=== PATIENT | male | born 1955 | race Two or more races ===

== ENCOUNTER 2020-11-01 12:24 | Outpatient (REF) | payer MEDICARE, SELFPAY ==
[2020-11-01 13:11] LABS: MANUAL DIFF FLAG NO
[2020-11-01 13:17] LABS: Basophils Percent Auto 0.5 % (0-2); Eosinophils Absolute Auto 0.1 X10*3/uL (0.0-0.4); Eosinophils Percent Auto 1.2 % (0-4); Hemoglobin 13.5 g/dl (14.0-18.0); Imm Gran Abs Auto 0.02 X10*3/uL (0.00-0.03); Imm Gran Pct Auto 0.3 % (0.0-0.4); Lymphocytes Absolute Auto 1.6 X10*3/uL (1.2-4.9); Lymphocytes Percent Auto 26.6 % (20-40); Mean Corpuscular HGB Conc 32.9 g/dl (31.0-36.0); Mean Corpuscular Hemoglobin 28.4 pg (27.0-33.0); Mean Corpuscular Volume 86.1 fL (80-98); Mean Platelet Volume 11.3 fL (9.4-12.4); Monocytes Absolute Auto 0.7 X10*3/uL (0.1-1.2); Monocytes Percent Auto 10.9 % (2-11); Neutrophils Absolute Auto 3.7 X10*3/uL (2.0-8.3); Neutrophils Percent Auto 60.5 % (45-73); Platelet Count 224 X10*3/uL (160-400); Red Blood Count 4.76 X10*6/uL (4.60-5.80); White Blood Count 6.1 X10*3/uL (4.8-10.8)
[2020-11-01 13:45] LABS: B Type Natriuretic Peptide 171 pg/mL (<100)
[2020-11-01 13:47] LABS: Alanine Aminotransferase 22 U/L (0-40); Albumin Level 4.2 g/dL (3.5-5.0); Alkaline Phosphatase 58 U/L (39-117); Anion Gap 12 (12-20); Aspartate Amino Transferase 24 U/L (5-37); Bilirubin Total 0.5 mg/dL (0.0-1.0); Blood Urea Nitrogen 20 mg/dL (9-16); Calcium 9.4 mg/dL (8.4-10.2); Carbon Dioxide 29 mmol/L (22-29); Chloride 106 mmol/L (96-108); Cholesterol 197 mg/dL; Estimated Glomerular Filt Rate > 60; Glucose Fasting 97 mg/dL (60-99); HDL Cholesterol 45 mg/dL; LDL Cholesterol Calculated 126 mg/dl; Potassium 4.8 mmol/L (3.3-5.1); Sodium 142 mmol/L (135-145); Triglycerides 130 mg/dL
== END 2020-11-01 12:25 | disposition home or self-care (01) ==
LOC: HO.LAB 12:24
PROVIDERS: PCP Internal Medicine; Visit Provider Internal Medicine
DX: E78.5 Hyperlipidemia, unspecified (principal); I10 Essential (primary) hypertension; K21.9 Gastro-esophageal reflux disease without esophagitis; R60.0 Localized edema
CPT/HCPCS: 36415; 80053; 80061; 83880; 85025

== ENCOUNTER 2020-11-07 12:23 | Outpatient (REF) | payer MEDICARE, SELFPAY ==
--- NOTE | ~2020-11-07 | US_ITS ---
EXAMINATION: US RETROPERITONEAL LIMITED (AORTA) CLINICAL INFORMATION: Personal history of nicotine dependence. COMPARISON: None TECHNIQUE: Andrea-scale, color Doppler and spectral Doppler evaluation of the abdominal aorta. FINDINGS: The aorta is normal in caliber. The measurements of the aorta in maximum AP and transverse dimensions respectively are as follows: Proximal: 3.0 x 3.0 cm. Mid: 1.9 x 2.2 cm. Distal: 1.5 x 2.0 cm. PSV: 235 cm/s. The measurements of the common iliac arteries in maximum AP and TRV dimensions are as follows: Right Common Iliac Artery: 1.1 x 1.1 cm. Left Common Iliac Artery: 1.0 x 1.0 cm. Peak systolic velocity 1 93 cm/s on the right and 2 47 cm/s on the left. US/US aorta IMPRESSION: Normal caliber abdominal aorta. No evidence of abdominal aortic aneurysm. Increased peak systolic velocity in the distal abdominal aorta and bilateral common iliac arteries.
== END 2020-11-07 12:24 | disposition home or self-care (01) ==
LOC: HO.US 12:23
PROVIDERS: PCP Internal Medicine; Visit Provider Internal Medicine
DX: Z87.891 Personal history of nicotine dependence (principal)
CPT/HCPCS: 76775

== ENCOUNTER → 2020-11-22 12:43 | Outpatient (REF) | payer MEDICARE, SELFPAY ==
--- NOTE | 2020-11-22 12:49 | CA_ITS ---
Transthoracic Echocardiogram Patient (Last, First, Middle): Zander Pittman A Gender: Male Date of : 1955 Age: 64 Procedure Date: 11/22/2020 Procedure Type: Transthoracic Echocardiogram Location: OP Height: 167.64 cm Weight: 117.94 kg BSA: 2.24 m2 Heart Rate: bpm BP: 128 / 70 mmHg Pulp Making Plant Operator: JULIEN Hernadez MD: Joslyn Gardner MD Drill Operator: Guillermo Perez MD Symptoms: R60.0 - Localized edema Study Quality: Fair/Contrast ECG Rhythm: Sinus Conclusions: - 1. Normal LV systolic function with elevated LVEDP 2. Moderately dilated left atrium 3. Normal cardiac valvular dopplers 4. Normal measured RVSP 5. No pericardial effusion Findings Procedure Information Contrast agent, definity, is being given per protocol without apparent complications. Left Ventricle Normal left ventricular size, thickness, and systolic function. The visually estimated ejection fraction is between 60-65%. Spectral Doppler is indicative of a pseudonormal filling pattern. Elevated left ventricular end diastolic pressure. Right Ventricle Normal right ventricular cavity size and systolic function. Atria The left atrium is moderately dilated. There is no evidence of interatrial shunt. The right atrium is normal in size. Aortic Valve Normal aortic valve structure and function. There is no aortic valve stenosis. There is no aortic valve regurgitation. Mitral Valve Likely normal mitral valve structure and function. There is trace mitral valve regurgitation. There is no mitral valve stenosis. Pulmonic Valve The pulmonic valve was not well visualized. Tricuspid Valve The tricuspid valve was not well visualized. There is trace tricuspid valve regurgitation. The right ventricular systolic pressure is normal. The right ventricular systolic pressure is 11 mmHg. Normal right atrial pressure. There is no evidence of pulmonary hypertension. Great Vessels The pulmonary artery was not well visualized. There is mild dilatation of the ascending aorta measuring 3.80 cm. Venous The inferior vena cava is normal in size and collapses greater than 50% with inspiration. Pericardium/Pleural There is no evidence of pericardial effusion. Prior Study Comparison No prior study available for comparison. Measurements 2D Linear Measurements IVSd: 1.23 0.6-0.9/0.6-1.0 cm LVIDd: 4.44 3.9-5.3/4.2-5.9 cm LVIDd Index: 1.98 2.4-3.2/2.2-3.1 cm/m2 LVIDs: 2.76 2.0-3.6 cm LVPWd: 1.18 0.7-1.1 cm Ao Root: 3.80 2.1-3.5 cm LA Diam: 4.70 2.7-3.8/3.0-4.0 cm LAIDs Index: 2.10 1.5-2.3 cm/m2 LV Mass: 243.25 67-162/88-224 g LV Mass Index: 108.59 43-95/49-115 g/m2 LVOT Diam: 2.10 3.0+(-)1.3 cm 2D Systolic Function EF 4C: 60.50 >55% EF 2C: 58.50 >55% EF BiP: 59.60 >55% Mitral Valve MV Pk E: 0.82 MV PK A: 0.59 MV Decel Time: 322.00 E/A: 1.40 E'Lateral: 10.60 E'Medial: 7.18 E/E' Med: 11.40 E/E' Lat: 7.70 PHT: 94.00 MVA PHT: 2.34 Decel [place]: 2.55 Aortic Valve AoV Pk Sanya: 1.49 AoV Mn Sanya: 1.06 AoV VTI: 0.38 AoV Pk Grad: 9.00 Aov Mn Grad: 5.00 KARO Cont.VTI: 2.44 LVOT LVOT Pk Sanya: 1.04 LVOT Mn Sanya: 0.72 LVOT VTI: 0.27 LVOT Pk Grad: 4.00 LVOT Mn Grad: 2.00 LVOT Diam: 2.10 LVOT Area: 3.46 Diastolic Function MV Pk E: 0.82 MV Pk A: 0.59 E/A: 1.40 E'Medial: 7.18 E/E' Med: 11.40 E' Laterial: 10.60 E/E' Lat: 7.70 Tricuspid Valve TR Pk Sanya: 1.44 TR Pk Grad: 8.00 RA Press: 3.00 RVSP: 11.00 Great Vessels Aorta Ao Root-2D: 3.80 2.0-3.7 cm Ao Asc: 3.80 2.1-3.4 cm Ao Arch: 3.20 Updated in Other Vendor System with Status of Final Guillermo Perez MD electronically signed on 11/23/2020 9:23:15 AM with status of Final
== END ==
LOC: HO.CARD 12:43
PROVIDERS: Visit Provider Internal Medicine
DX: R60.0 Localized edema (principal)
CPT/HCPCS: 93306; Q9957

== ENCOUNTER 2021-06-13 12:16 | Outpatient (REF) | payer MEDICARE, SELFPAY ==
[2021-06-13 12:56] LABS: MANUAL DIFF FLAG NO
[2021-06-13 13:41] LABS: Basophils Percent Auto 0.4 % (0-2); Eosinophils Absolute Auto 0.1 X10*3/uL (0.0-0.4); Eosinophils Percent Auto 1.5 % (0-4); Hemoglobin 13.4 g/dl (14.0-18.0); Imm Gran Abs Auto 0.02 X10*3/uL (0.00-0.03); Imm Gran Pct Auto 0.4 % (0.0-0.4); Lymphocytes Absolute Auto 1.5 X10*3/uL (1.2-4.9); Lymphocytes Percent Auto 28.1 % (20-40); Mean Corpuscular HGB Conc 32.7 g/dl (31.0-36.0); Mean Corpuscular Hemoglobin 27.9 pg (27.0-33.0); Mean Corpuscular Volume 85.4 fL (80.0-98.0); Mean Platelet Volume 11.6 fL (9.4-12.4); Monocytes Absolute Auto 0.6 X10*3/uL (0.1-1.2); Monocytes Percent Auto 10.7 % (2-11); Neutrophils Absolute Auto 3.2 x10*3/uL (2.0-8.3); Neutrophils Percent Auto 58.9 % (45-73); Platelet Count 217 X10*3/uL (160-400); Red Cell Distribution Width 13.2 % (11.0-16.0); White Blood Count 5.4 X10*3/uL (4.8-10.8)
[2021-06-13 14:05] LABS: Alanine Aminotransferase 21 U/L (0-40); Albumin Level 4.1 g/dL (3.5-5.0); Alkaline Phosphatase 61 U/L (39-117); Anion Gap 12 (12-20); Aspartate Amino Transferase 22 U/L (5-37); Bilirubin Total 0.6 mg/dL (0.0-1.0); Blood Urea Nitrogen 20 mg/dL (9-16); Calcium 9.6 mg/dL (8.4-10.2); Carbon Dioxide 29 mmol/L (22-29); Chloride 105 mmol/L (96-108); Cholesterol 204 mg/dL; Estimated Glomerular Filt Rate > 60; Glucose Fasting 102 mg/dL (60-99); HDL Cholesterol 42 mg/dL; LDL Cholesterol Calculated 138 mg/dl; Potassium 4.8 mmol/L (3.3-5.1); Sodium 141 mmol/L (135-145); Triglycerides 122 mg/dL
[2021-06-13 14:22] LABS: Prostate Specific Antigen 1.29 ng/mL (<0.05-4.0)
== END 2021-06-13 12:17 | disposition home or self-care (01) ==
LOC: HO.LAB 12:16
PROVIDERS: Nurse Practitioner Family; PCP Internal Medicine; Visit Provider Internal Medicine
DX: D64.9 Anemia, unspecified (principal); K21.9 Gastro-esophageal reflux disease without esophagitis; I10 Essential (primary) hypertension; E78.5 Hyperlipidemia, unspecified; Z12.5 Encounter for screening for malignant neoplasm of prostate
CPT/HCPCS: 36415; 80053; 80061; 84153; 85025

== ENCOUNTER 2022-03-30 15:08 | Outpatient (REF) | payer OTHER, SELFPAY ==
--- NOTE | ~2022-03-30 | US_ITS ---
EXAMINATION: US SCROTUM CLINICAL INFORMATION: Swelling of scrotum. COMPARISON: None TECHNIQUE: A sonogram of the scrotum was performed assessing menendez-scale appearance and color Doppler flow. Spectral Doppler analysis of the arterial and venous flow were performed in the testes bilaterally. FINDINGS: RIGHT: Right testicle measures 4.3 x 2.7 x 2.9 cm, volume 18.1 mL. No focal testicular parenchymal lesions are visualized. Spectral Doppler analysis of the arterial and venous flow is normal in the right testis. Large right hydrocele. Incidentally noted 6 mm right testicular cyst and right appendix testis. Right epididymal head is normal in size. No right varicocele is seen. Right epididymal Doppler flow is normal. LEFT: Left testicle measures 2.7 x 2.0 x 2.0 cm, volume 5.5 mL. No focal testicular parenchymal lesions are visualized. Spectral Doppler analysis of the arterial and venous flow is normal in the left testis. Heterogeneous and atrophic appearance of the left testicle. Left epididymal head is normal in size. 6 mm left epididymal head cyst. No left hydrocele or varicocele is seen. Left epididymal Doppler flow is normal. US/US scrotum IMPRESSION: Left testicle is heterogeneous and atrophic which may reflect sequelae of prior traumatic, infectious, or ischemic insult. Normal testicular vascular flow. Large right hydrocele. Additional incidental findings are as detailed above.
== END 2022-03-30 15:09 | disposition home or self-care (01) ==
LOC: HO.US 15:08
PROVIDERS: PCP Internal Medicine; Visit Provider Internal Medicine
DX: N50.89 Other specified disorders of the male genital organs (principal)
CPT/HCPCS: 76870

== ENCOUNTER 2022-07-01 15:02 | Outpatient (REF) | payer OTHER, SELFPAY ==
[2022-07-01 16:29] LABS: Urine Cytology See Pathology rpt
== END 2022-07-01 15:03 | disposition home or self-care (01) ==
LOC: HO.LAB 15:02
PROVIDERS: PCP Internal Medicine; Visit Provider Nurse Practitioner Family
DX: N43.3 Hydrocele, unspecified (principal); Z79.899 Other long term (current) drug therapy
CPT/HCPCS: 88112; 99202

== ENCOUNTER 2022-07-10 12:13 | Outpatient (REF) | payer OTHER, SELFPAY ==
[2022-07-10 15:21] LABS: Alanine Aminotransferase 23 U/L (0-40); Albumin Level 3.9 g/dL (3.5-5.0); Alkaline Phosphatase 65 U/L (39-117); Anion Gap 13 (12-20); Aspartate Amino Transferase 22 U/L (5-37); Bilirubin Total 0.8 mg/dL (0.0-1.0); Blood Urea Nitrogen 20 mg/dL (9-16); Calcium 9.1 mg/dL (8.4-10.2); Carbon Dioxide 30 mmol/L (22-29); Chloride 103 mmol/L (96-108); Cholesterol 176 mg/dL; Estimated Glomerular Filt Rate > 60; Glucose Fasting 87 mg/dL (60-99); HDL Cholesterol 43 mg/dL; LDL Cholesterol Calculated 111 mg/dl; Potassium 4.8 mmol/L (3.3-5.1); Sodium 141 mmol/L (135-145); Total Protein 6.4 g/dL (6.5-8.0); Triglycerides 114 mg/dL
[2022-07-10 15:38] LABS: Vitamin D 25-OH Total 26.6 ng/mL (>30)
== END 2022-07-10 12:14 | disposition home or self-care (01) ==
LOC: HO.LAB 12:13
PROVIDERS: PCP Internal Medicine; Visit Provider Internal Medicine
DX: Z00.00 Encounter for general adult medical examination without abnormal findings (principal); E55.9 Vitamin D deficiency, unspecified; E78.5 Hyperlipidemia, unspecified
CPT/HCPCS: 36415; 80053; 80061; 82306

== ENCOUNTER → 2022-07-28 13:36 | Outpatient (BNVA) | payer OTHER, SELFPAY | PROVIDERS: PCP Internal Medicine; Referring Provider Internal Medicine; Visit Provider Surgery | DX: L72.3 Sebaceous cyst (principal) | CPT/HCPCS: 99202 ==

== ENCOUNTER 2022-08-10 12:11 | Day surgery (SDC) | payer OTHER, SELFPAY ==
[2022-08-05 16:16] VITALS: BMI 40.1
[2022-08-10 13:51] VITALS: BP 151/63; PULSE 67; RESP 18; TEMP 36.3; O2SAT 98
[2022-08-10] MEDS: Lactated Ringers 1,000 ML 50 ML IVCONT ×2 (14:08→14:39)
--- NOTE | 2022-08-10 15:28 | MHC.SHP ---
Pre-Procedural Eval Section A Date of Service: 08/10/22 The patient is an INPATIENT: No Changes since office visit: No Cold of Flu in the past 2 weeks, No New Medical Problems, No Changes in Medication and No Patient answered all questions The History & Physical has been completed within 30 days and I have reviewed it.: Yes Section B Chief Complaint: Hydrocele, unspecified Allergies: Allergies Allergy/AdvReac Type Severity Reaction Status Date / Time No Known Allergies Allergy Verified 08/05/22 16:15 Review of Systems Sugical H&P ROS: Negative: Constitution, Cardiovascular, Respiratory, Neurological, Psychiatric, Hem-Onc, Allergic/Immunologic, Gastrointestinal, Genitourinary, Musculoskeletal, Integumentary, Endocrine and Eyes/Ears/Nose/Throat Exam Surgical H&P Exam: Normal: HEENT, Normal: Heart, Normal: Lungs, Normal: Extremities, Normal: Abdomen, Normal: Skin and Normal: Neurological Plan Diagnosis/Plan: Unchanged (right hydrocelectomy) I have reviewed the history and physical and performed a pertinent physical examination on my patient. No changes have occurred unless specified. Time Spent With Patient Time: Total time managing care of this patient today ____ minutes.
--- NOTE | 2022-08-10 15:49 | HO.ANESPROP2 ---
HPI - Anesthesia Eval Consult details Narrative: for hydrocele repair PMFSH Active Problems Active Problems: All Active Problems (Updated 07/14/22 @ 13:33 by Joslyn Gardner MD) Sebaceous cyst (Acute) Morbid obesity (Acute) Lipoma (Acute) Right hydrocele (Acute) Screen for colon cancer (Acute) Physical exam (Acute) Class 2 obesity with body mass index (BMI) of 38.0 to 38.9 in adult (Acute) Scrotal swelling (Acute) Adult general medical exam (Acute) Pruritic rash (Acute) Screening for prostate cancer (Acute) Screening for colon cancer (Acute) Leg edema (Acute) Former smoker (Acute) Obese (Acute) Dyslipidemia (Acute) GERD (gastroesophageal reflux disease) (Acute) Essential hypertension (Acute) Past Medical History Medical History Dyslipidemia Essential hypertension Former smoker GERD (gastroesophageal reflux disease) Leg edema Obese Family History Family History Father Cancer Mother Diabetes Family history of problems with anesthesia: No Surgical History Surgical History History of colon polyps History of colonoscopy History of Problems with Anesthesia: No Social History Social History Housing: House Are you a primary hospice care transitions coordinator to a significant other at home: No Do you presently have visiting nurse or other home services: No ([facility] [phone]) Alcohol intake: former Patient Tobacco Use Status: Former Tobacco user Tobacco use type: Cigarette e-Cigarette/Vaping Use: Never Used Second Hand Smoke Exposure: No Use of substances other than those prescribed or required for medical reasons: No Have you been hit, kicked, punched, or otherwise hurt by someone within the past year? If so, by whom?: No Are you DNR?: No Advance Directives: No Advance Directives Information Provided: Yes Advance Directives on File: No Recently lost weight without trying: No service: No Current occupational status: retired Cognitive needs: No Hearing needs: No Vision needs: Yes Meds Allergies Allergy/AdvReac Type Severity Reaction Status Date / Time No Known Allergies Allergy Verified 08/05/22 16:15 Exam Exam Date and Time: August 10, 2022 1549 Height,Weight and Vital Signs: Height 5 ft 8 in Weight 119.748 kg Last Vital Signs Temp 97.3 F 08/10/22 13:51 Pulse 67 08/10/22 13:51 Resp 18 08/10/22 13:51 BP 151/63 H 08/10/22 13:51 Pulse Ox 98 08/10/22 13:51 O2 Del Method Room Air 08/10/22 13:51 Airway Mallampati Class: II TM Dist: >3cm Neck ROM: Full (No neck.) Partial: Upper and Lower Loose/Missing/Broken Teeth: Yes, Upper and Lower Heart: ok Lungs: ok Assessment and Plan Final Anesthetic Review Family History of Problems with Anesthesia: No History of Problems with Anesthesia: No NPO: Yes ASA Class: III Final Preanesthetic Review: No Changes in Pt Med Stat, Meds/Allgs Chart Reviewed, Consent Obtained/Reviewed and Anes Risks/Benef Reviewed Patient Risk: Intermediate Procedure Risk: Low Anesthetic Plan Anesthetic Plan: GA and Agree w/ Assess. and Plan Disposition: Standard PACU
--- NOTE | 2022-08-10 17:05 | P.OP_ITS ---
Operative Note Operative Note Date of Service: 08/10/22 Narrative: PreOperative Diagnosis: Large right hydrocele Post Operative Diagnosis: Large right hydrocele Procedure: Hydrocelectomy Surgeon: Dr Abe Lowe Anesthesia: General Indications for procedure: Large right hydrocele with persistent discomfort Procedure: After informed consent was verified the patient was brought to the operating room and placed in a supine position. Anesthesia was administered per protocol. Patient was appropriately shaved and genitals were prepped and draped in sterile fashion. Safety pause time-out was performed. Antibiotics being given. Local anesthetic was infiltrated under the skin in a horizontal fashion on the scrotum. Skin incision was made using a blade through the subdermal layer. The tunica around the testicle was elevated and dissected free from surrounding tissue. The avascular plane around the tunica was entered and using a wet sponge blunt dissection was performed. Any small bleeding perforators were cauterized. The testicle was delivered out of the scrotum and opened in a longitudinal fashion.. Fluid was removed - approximately 300 cc. The testicle sac was inverted. Excess thickened sac was dissected and removed using a Thunderbeat cautery instrument to minimize porst procedure bleeding. A bottle neck procedure was performed to approximate edges using a running 3-0 Vicryl suture. Skin edges of the tunica were cauterized carefully in order to try to minimize postprocedure hematoma. Small accessory appendices were removed from the head of epididymis. The testicle with resected sac was placed back into a dependent portion of the scrotum. Overlying skin fascia layer was closed with a running 3-0 Vicryl winkler ture. Skin was closed with interrupted 4-0 chromic sutures. Soft fluff sponges were placed with mesh pants as dressing. Local anesthetic was placed in inguinal cord for post procedure pain relief. Patient tolerated procedure well was extubated in operating room transferred in stable condition to the recovery area Pathology: Hydrocele sac Drains: No drain
[2022-08-10 17:10] VITALS: BP 125/55; PULSE 63; RESP 14; TEMP 36.6; O2SAT 98
[2022-08-10 17:15] VITALS: BP 127/65; PULSE 68; RESP 14; O2SAT 98
[2022-08-10 17:20] VITALS: BP 135/66; PULSE 66; RESP 14; O2SAT 98
[2022-08-10 17:25] VITALS: BP 137/66; PULSE 65; RESP 14; TEMP 36.1; O2SAT 99
== END 2022-08-10 17:30 | disposition home or self-care (01) ==
PROVIDERS: PCP Internal Medicine; Visit Provider Urology
PROC: (CPT 55060; principal; 2022-08-10 13:20)
DX: N43.3 Hydrocele, unspecified (principal)
CPT/HCPCS: 55040; 88302; J0690; J2795; J3010

== ENCOUNTER → 2022-09-09 11:00 | Outpatient (BNVA) | payer OTHER, SELFPAY | PROVIDERS: PCP Internal Medicine; Visit Provider Urology | DX: N43.3 Hydrocele, unspecified (principal) | CPT/HCPCS: 99212 ==

== ENCOUNTER → 2022-09-21 11:00 | Outpatient (BNVA) | payer OTHER, SELFPAY | PROVIDERS: PCP Internal Medicine; Visit Provider Internal Medicine | DX: Z01.818 Encounter for other preprocedural examination (principal) | CPT/HCPCS: 99202 ==

== ENCOUNTER 2022-10-21 10:15 | Day surgery (SDC) | payer OTHER, SELFPAY ==
[2022-08-14 15:02] VITALS: BMI 40.1
--- NOTE | 2022-08-18 09:15 | HO.ANESPROP2 ---
HPI - Anesthesia Eval Consult details Narrative: 66yo M for Excision Right Mid Back Mass Lateral Pos, 10/21/22 s/p hydrocele repair 08/10/22 with GA-LMA 4 PMFSH Active Problems Active Problems: All Active Problems (Updated 07/14/22 @ 13:33 by Joslyn Gardner MD) Screening for colon cancer (Acute) Screening for prostate cancer (Acute) Pruritic rash (Acute) Adult general medical exam (Acute) Scrotal swelling (Acute) Class 2 obesity with body mass index (BMI) of 38.0 to 38.9 in adult (Acute) Physical exam (Acute) Screen for colon cancer (Acute) Right hydrocele (Acute) Lipoma (Acute) Morbid obesity (Acute) Sebaceous cyst (Acute) Leg edema (Acute) Former smoker (Acute) Obese (Acute) Dyslipidemia (Acute) GERD (gastroesophageal reflux disease) (Acute) Essential hypertension (Acute) Past Medical History Medical History Dyslipidemia Essential hypertension Former smoker GERD (gastroesophageal reflux disease) Leg edema Obese Family History Family History Father Cancer Mother Diabetes Family history of problems with anesthesia: No Surgical History Surgical History History of colon polyps History of colonoscopy History of hydrocelectomy History of Problems with Anesthesia: No Social History Social History Housing: House Are you a primary professional healthcare representative to a significant other at home: No Do you presently have visiting nurse or other home services: Yes ([facility] [phone]) Alcohol intake: former Patient Tobacco Use Status: Former Tobacco user Tobacco use type: Cigarette e-Cigarette/Vaping Use: Never Used Second Hand Smoke Exposure: No service: No Current occupational status: retired Cognitive needs: No Hearing needs: No Vision needs: Yes Meds Allergies Allergy/AdvReac Type Severity Reaction Status Date / Time No Known Allergies Allergy Verified 09/21/22 11:12 Exam Exam Date and Time: August 18, 2022 0915 Height,Weight and Vital Signs: Height 5 ft 8 in Weight 119.748 kg Pertinent Lab Results Pertinent Lab Results: Laboratory Tests 06/13/21 07/10/22 12:54 12:22 WBC 5.4 Hgb 13.4 L Hct 41.0 L Plt Count 217 Sodium 141 Potassium 4.8 Chloride 103 Carbon Dioxide 30 H BUN 20 H Creatinine 0.98 Narrative Narrative: ECHO 2020 Conclusions: - 1. Normal LV systolic function with elevated LVEDP ? 2. Moderately dilated left atrium? 3. Normal cardiac valvular dopplers? 4. Normal measured RVSP? 5. No pericardial effusion ? Assessment and Plan Assessment Anesthesia Assessment: Chart Reviewed Final Anesthetic Review Family History of Problems with Anesthesia: No History of Problems with Anesthesia: No
--- NOTE | 2022-10-20 08:28 | MHC.SHP ---
Pre-Procedural Eval Section A Date of Service: 10/20/22 The patient is an INPATIENT: No Changes since office visit: No Cold of Flu in the past 2 weeks, No New Medical Problems, No Changes in Medication and No Patient answered all questions The History & Physical has been completed within 30 days and I have reviewed it.: Yes Section B Chief Complaint: Sebaceous cyst Allergies: Allergies Allergy/AdvReac Type Severity Reaction Status Date / Time No Known Allergies Allergy Verified 09/21/22 11:12 Plan I have reviewed the history and physical and performed a pertinent physical examination on my patient. No changes have occurred unless specified. Time Spent With Patient Time: Total time managing care of this patient today ____ minutes.
[2022-10-21 11:06] VITALS: BP 156/71; PULSE 61; RESP 16; TEMP 36; O2SAT 98
[2022-10-21] MEDS: Lactated Ringers 1,000 ML 100 ML IVCONT (11:15)
--- NOTE | 2022-10-21 12:52 | HO.ANESPROP2 ---
[facility] Active Problems Active Problems: All Active Problems (Updated 09/09/22 @ 11:35 by Abe Lowe MD) Hydrocele (Acute) Screening for colon cancer (Acute) Screening for prostate cancer (Acute) Pruritic rash (Acute) Adult general medical exam (Acute) Scrotal swelling (Acute) Class 2 obesity with body mass index (BMI) of 38.0 to 38.9 in adult (Acute) Physical exam (Acute) Screen for colon cancer (Acute) Right hydrocele (Acute) Lipoma (Acute) Morbid obesity (Acute) Sebaceous cyst (Acute) Leg edema (Acute) Former smoker (Acute) Obese (Acute) Dyslipidemia (Acute) GERD (gastroesophageal reflux disease) (Acute) Essential hypertension (Acute) Past Medical History Medical History Dyslipidemia Essential hypertension Former smoker GERD (gastroesophageal reflux disease) Leg edema Obese Functional capacity: independent ambulation Family History Family History Father Cancer Mother Diabetes Family history of problems with anesthesia: No Surgical History Surgical History History of colon polyps History of colonoscopy History of hydrocelectomy History of Problems with Anesthesia: No Social History Social History Housing: House Are you a primary campground caretaker to a significant other at home: No Do you presently have visiting nurse or other home services: Yes ([facility] [phone]) Alcohol intake: former Patient Tobacco Use Status: Former Tobacco user Tobacco use type: Cigarette e-Cigarette/Vaping Use: Never Used Second Hand Smoke Exposure: No Use of substances other than those prescribed or required for medical reasons: No Have you been hit, kicked, punched, or otherwise hurt by someone within the past year? If so, by whom?: No Are you DNR?: No Advance Directives: No Advance Directives Information Provided: Yes Advance Directives on File: No Recently lost weight without trying: No Nutrition Risks: No Nutritional Risk Poor oral hygiene: No (full upper & lower dentures) service: No Current occupational status: retired Cognitive needs: No Hearing needs: No Vision needs: Yes Meds Allergies Allergy/AdvReac Type Severity Reaction Status Date / Time No Known Allergies Allergy Verified 09/21/22 11:12 Active Medications: Current Medications Lactated Ringer's (Lr) 1,000 mls @ 100 mls/hr IVCONT .Q10H JANELLE Last Admin: 10/21/22 11:15 Dose: 100 mls/hr Exam Exam Date and Time: October 21, 2022 1252 Height,Weight and Vital Signs: Height 5 ft 8 in Weight 119.748 kg Last Vital Signs Temp 96.8 F 10/21/22 11:06 Pulse 61 10/21/22 11:06 Resp 16 10/21/22 11:06 BP 156/71 H 10/21/22 11:06 Pulse Ox 98 10/21/22 11:06 O2 Del Method Room Air 10/21/22 11:06 Airway Mallampati Class: III TM Dist: >3cm Neck ROM: Full Heart: RRR Lungs: CTA Assessment and Plan Final Anesthetic Review Family History of Problems with Anesthesia: No History of Problems with Anesthesia: No ASA Class: II Final Preanesthetic Review: Meds/Allgs Chart Reviewed, Consent Obtained/Reviewed and Anes Risks/Benef Reviewed Patient Risk: Low Procedure Risk: Low Anesthetic Plan Anesthetic Plan: MAC: Disposition: Standard PACU
--- NOTE | 2022-10-21 13:35 | W.PM.OPN ---
Operative Note Operative Note Date of Service: 10/21/22 Narrative: Preoperative diagnosis: [] Right mid back large sebaceous cyst Postop diagnosis: [] Same Procedure [] excision of right mid back large sebaceous cyst Surgeon: [] Alex Duplicate Maker: [] essie Segovia Type of Anesthesia: [] MAC Indication for surgery: [] Final specimen measured approximately 4 x 3 cm consistent with a large sebaceous cyst. Findings: [] Patient is brought to the operating room, placed on the operative table in supine position, after adequate level of MAC was induced, patient was placed in left lateral decubitus position. Mid back was prepped and draped in usual sterile fashion. Wound was infiltrated 0.5% Marcaine/1% lidocaine over the designated area and a transverse bi- elliptical incision was made around the cyst in question and carried down through skin, subcutaneous tissue, and undermined using electro Bovie. Specimen was sent to pathology. The wound Was irrigated, secured hemostasis, and closed using interrupted inverted dermal 3-0 Vicryl sutures followed by Steri-Strips and sterile dressings. Sponge, needle, instrument counts reported correct. Patient tolerated the procedure well and emerged from anesthesia in stable condition. EBL minimal
[2022-10-21 13:37] VITALS: BP 127/63; PULSE 60; RESP 16; TEMP 36.6; O2SAT 97
[2022-10-21 13:52] VITALS: BP 142/71; PULSE 63; RESP 16; TEMP 36.6; O2SAT 98
== END 2022-10-21 13:56 | disposition home or self-care (01) ==
PROVIDERS: PCP Internal Medicine; Visit Provider Surgery
PROC: (CPT 11404; principal; 2022-10-21 11:50)
DX: L72.3 Sebaceous cyst (principal); E78.5 Hyperlipidemia, unspecified; I10 Essential (primary) hypertension; K21.9 Gastro-esophageal reflux disease without esophagitis; R60.0 Localized edema; E66.9 Obesity, unspecified; Z68.38 Body mass index [BMI] 38.0-38.9, adult; Z79.899 Other long term (current) drug therapy; Z87.891 Personal history of nicotine dependence
CPT/HCPCS: 11404; 88304; J0690; J2250; J2795

== ENCOUNTER → 2022-10-29 13:34 | Outpatient (BNVA) | payer OTHER, SELFPAY | PROVIDERS: Visit Provider Surgery ==

== ENCOUNTER 2023-03-10 14:24 | Outpatient (AMB) | payer OTHER, SELFPAY ==
--- NOTE | 2023-03-10 14:27 | A.OFFVIS_ITS ---
Intake Intake Visit Reasons: Hydrocele- follow up Intake Note: Patient is present for follow up hydrocele Urology Medications: none Blood Thinner: none Restaurant Area Manager Required: Yes Restaurant Area Manager Name: EMANUEL SULLIVANYuliana AGUILAR Accompanied by: Self / Same As Patient Allergies No Known Allergies Allergy (Verified 03/10/23 16:22) Medication List - Last Reconciled 03/10/23 by MAMADOU Hope amlodipine 5 mg PO DAILY 90 days atorvastatin 40 mg PO BEDTIME 90 days blood pressure monitor As directed chlorthalidone 25 mg PO DAILY 90 days lisinopril 40 mg PO DAILY 90 days loratadine 10 mg PO DAILY 90 days metoprolol succinate ER 100 mg PO DAILY 90 days omeprazole 20 mg PO DAILY 90 days HPI HPI Comments History of Present Illness Details Zander is a pleasant 67 year old Yemeni speaking patient of Dr. Ch. He has a past medical history of former smoker, obesity, dyslipidemia, GERD, and hypertension. He presents to the office today for follow-up. Of note, patient previously underwent a right-sided hydrocelectomy with Dr. Lowe 08/23. When asked he reports to be doing and feeling well. He reports no urinary issues or concerns at this time. Skin incision well healed. No open areas, drainage, and or abnormalities noted. When asked patient denies urinary urgency, urinary frequency, incontinence, nocturia, hematuria,erectile dysfunction, changes to urinary stream, flank pain, fever, and or chills. In office urinalysis results reviewed with the patient today. In review of patient's chart it appears PSA 06/25--1.3. PFSH Medical History Leg edema Former smoker Obese Dyslipidemia GERD (gastroesophageal reflux disease) Essential hypertension Surgical History History of hydrocelectomy History of colonoscopy History of colon polyps Family History Father Cancer Mother Diabetes Social History Housing: House Are you a primary career development coordinator/teacher to a significant other at home: No Do you presently have visiting nurse or other home services: Yes (Roseann [phone]) Alcohol intake: former Patient Tobacco Use Status: Former Tobacco user Tobacco use type: Cigarette e-Cigarette/Vaping Use: Never Used Second Hand Smoke Exposure: No service: No Current occupational status: retired Cognitive needs: No Hearing needs: No Vision needs: Yes Review of Systems Eyes Reports no additional complaints ENT Reports no additional complaints Card Reports as per HPI Resp Reports no additional complaints GI Reports as per HPI Reports as per HPI Musc Reports no additional complaints Neuro Reports no additional complaints Psych Reports no additional complaints Endo Reports no additional complaints Nahum/Lymph Reports no additional complaints Aller/Immun Reports no additional complaints Physical Exam Const General: cooperative, healthy appearing, comfortable, no acute distress, well developed, alert and awake Nutritional Appearance: overweight Orientation/consciousness: patient oriented x3 Limitations: no limitations HEENT Head: Yes normal to inspection, Yes normocephalic and Yes atraumatic Ears: hearing grossly normal bilaterally Eyes General: appearance normal, both eyes and all related structures Neck Neck: Yes normal visual inspection and Yes trachea midline Chest Chest palpation & inspection: normal inspection of the chest Resp Effort & Inspection: normal respiratory effort and able to speak in complete sentences Cardio Rate: regular rate GI Inspection: Yes normal to inspection General: Yes no CVA tenderness Penis: normal penis Meatus: meatus normal Scrotum: Hydrocele present (large right hydrocele) Testes: testicular atrophy (left side ) Back/Spine/Pelvis Back: no CVA tenderness Skin General skin exam: no rashes or lesions noted Neuro General: patient oriented x3 Extrem General: Yes normal to inspection Psych Appearance: grossly normal and well kempt Mental Status: mental status grossly normal Speech and movement: Normal speech and movement present and Clear speech present Affect: normal affect Attitude: cooperative Thought process: Normal thought process present Thought content: Normal thought content present Insight: Good insight present (Psych) Judgement: Good judgement present (Psych) Results AMB Urinalysis, Automated UA Leukoctes 0 Pipe/uL Last Edit by Sukh Chand on 03/10/23 14:44 UA Nitrite Negative Last Edit by Histrosyuli Chand on 03/10/23 14:44 UA Urobilinogen 0.2 mg/dL Last Edit by DemondMystery Scienceyuli Chand on 03/10/23 14:44 UA Protein 0 mg/dL Last Edit by Sukh Chand on 03/10/23 14:44 UA pH 7.0 Last Edit by Sukh Mosquedaeduarda on 03/10/23 14:44 UA Blood 0 Jasen/uL Last Edit by Sukh Jaylineduarda on 03/10/23 14:44 UA Specific [place] 1.015 Last Edit by Sukh Jaylineduarda on 03/10/23 14:44 UA Ketone Negative Last Edit by Sukh Chand on 03/10/23 14:44 UA Bilirubin 0 mg/dL Last Edit by Sukh Jaylineduarda on 03/10/23 14:44 UA Glucose 0 mg/dL Last Edit by Sukh Jaylineduarda on 03/10/23 14:44 Results Reviewed Results Reviewed: Laboratory Last Values Urine pH (Auto) 7.0 03/10/23 14:30 Specific [place] (Auto) 1.015 03/10/23 14:30 Urine Protein (Auto) 0 mg/dL 03/10/23 14:30 Glucose (UA)(Auto) 0 mg/dL 03/10/23 14:30 Urine Ketones (Auto) Negative 03/10/23 14:30 Urine Blood (Auto) 0 Jasen/uL 03/10/23 14:30 Urine Nitrite (Auto) Negative 03/10/23 14:30 Urine Bilirubin (Auto) 0 mg/dL 03/10/23 14:30 Urine Urobilinogen (Auto) 0.2 mg/dL 03/10/23 14:30 Leukocyte Esterase (Auto) 0 Pipe/uL 03/10/23 14:30 Assessment & Plan Assessment & Plan (1) Hydrocele: Code(s): N43.3 - Hydrocele, unspecified Plan In office urinalysis results reviewed with the patient today; as noted above. Patient denies any bothersome urinary issues or concerns at this time. He reports be happy with current voiding parameters. Incision appears well-healed no open areas, drainage, and or abnormalities noted. Will obtain PSA Follow-up in 6 months with PSA to be completed prior; or sooner with any issues, concerns, and or questions. Orders: Orders Prostate Specific Antigen 6 Months N40.0 - Benign prostatic hyperplasia without lower urinary tract symptoms AMB Urinalysis Automated Today Z13.9 - Encounter for screening, unspecified Medications: Discontinued tramadol Discontinued Reason: No Longer Medically Relevant 50 mg PO Q6H PRN 8 tabs 0RF pain (scale score 1-3) oxycodone Partial Fill upon patient request. Discontinued Reason: No Longer Medically Relevant 5 mg PO Q4H PRN 20 caps 0RF pain Patient Instructions: The patient had an opportunity to ask questions regarding the treatment plan. All questions were answered. Physical exam, labs, and imaging were discussed and reviewed in detail. As well as risks, benefits, and discussion of treatment choices. No major barriers to understanding were identified. The patient expressed understanding and agreement with the above treatment plan. The patient was made aware they should contact our office by phone for worsening of their current condition, the appearance of new symptoms, or with any questions or concerns. Compliance is encouraged with any medications and follow up testing that is ordered. It is a privilege to be allowed the opportunity to participate in? your urological care.? Again, if you have any questions or concerns If you have any questions or concerns please do not hesitate to contact me. The office is [phone]. This note is constructed using voice recognition software. While every effort has been made to ensure accuracy java android developer errors may have been included. Yours sincerely, MAMADOU Hope Coding Level of Care Code Est Pt Level 3 (90886) Diagnoses Hydrocele N43.3
== END 2023-03-10 14:50 | disposition home or self-care (01) ==
PROVIDERS: Visit Provider Nurse Practitioner Family
DX: N43.3 Hydrocele, unspecified (principal); Z13.9 Encounter for screening, unspecified
CPT/HCPCS: 99213

== ENCOUNTER → 2023-03-10 14:24 | Outpatient (BNVA) | payer OTHER, SELFPAY | PROVIDERS: Visit Provider Nurse Practitioner Family | DX: N43.3 Hydrocele, unspecified (principal) | CPT/HCPCS: 81003; 99212 ==

== ENCOUNTER 2023-08-05 15:15 | Outpatient (AMB) | payer OTHER, SELFPAY ==
--- NOTE | 2023-08-05 15:19 | A.OFFPC_ITS ---
Vital Signs 08/05/23 15:20 Height 5 ft 8 in Weight 265 lb BMI 40.3 BP 150/70 H Blood Pressure Location Lt brachial Position Sitting Intake Visit Reasons: Physical exam Intake Note: Patient here for a physical exam Hogshead Stock Clerk Required: No Accompanied by: Friend Allergies No Known Allergies Allergy (Verified 08/05/23 15:36) Medication List - Last Reconciled 08/05/23 by Joslyn Gardner MD amlodipine 5 mg PO DAILY 90 days atorvastatin 40 mg PO BEDTIME 90 days blood pressure monitor As directed chlorthalidone 25 mg PO DAILY 90 days lisinopril 40 mg PO DAILY 90 days loratadine 10 mg PO DAILY 90 days metoprolol succinate ER 100 mg PO DAILY 90 days omeprazole 20 mg PO DAILY 90 days Tobacco use date assessed: 08/05/23 Fall risk assessment: No Falls in past year Last assessed Fall Risk: 08/05/23 Dental Screening Dental Screen Date: 08/05/23 Did you have a dental visit in the last 12 months?: Yes Did you have a dental problem in the last 6 months where you did not have access to dental care?: No Was dental information given to patient?: Patient has dentist HPI HPI Comments History of Present Illness Details This is a 67-year-old male with morbid obesity that comes accompanied by his best friend's for his physical exam. He has not had a colonoscopy yet. Was a former smoker and ultrasound of abdominal aorta was negative for aneurysm. He is morbidly obese with a BMI of 40.3 and declines weight loss surgery. Was advised to do diet and exercise. No chest pain or shortness of breath. [facility] Medical History (Updated 08/05/23 @ 15:51 by Joslyn Gardner MD) Leg edema Former smoker Obese Dyslipidemia GERD (gastroesophageal reflux disease) Essential hypertension Surgical History Sebaceous cyst History of hydrocelectomy History of colonoscopy History of colon polyps Family History Father Cancer Mother Diabetes Social History Housing: House Are you a primary healthcare economics manager to a significant other at home: No Do you presently have visiting nurse or other home services: Yes (Roseann [phone]) Alcohol intake: former Patient Tobacco Use Status: Former Tobacco user Tobacco use type: Cigarette e-Cigarette/Vaping Use: Never Used Second Hand Smoke Exposure: No service: No Current occupational status: retired Cognitive needs: No Hearing needs: No Vision needs: Yes Questionnaire PHQ-9 Over the last 2 weeks, how often have you been bothered by any of the following problems? 1. Little interest or pleasure in doing things: not at all 2. Feeling down, depressed, or hopeless: not at all 3. Trouble falling or staying asleep, or sleeping too much: not at all 4. Feeling tired or having little energy: not at all 5. Poor appetite or overeating: not at all 6. Feeling bad about yourself - or that you are a failure or have let yourself or your family down: not at all 7. Trouble concentrating on things, such as reading the newspaper or watching television: not at all 8. Moving or speaking so slowly that other people could have noticed. Or the opposite - being so fidgety or restless that you have been moving around a lot more than usual: not at all 9. Thoughts that you would be better off or of hurting yourself in some way: not at all Total score: 0 Depression Screening Interpretation: Negative Depression Screening Done: Yes 69456 - PHQ-9 Billing: Yes Source: Developed by Drs. Murphy Yi, Valencia Gonzalez, Deondre Kelly and colleagues, with an educational lance from [employer]. Thrive Questionnaire Date Thrive assessed: 08/05/23 I am a: Patient What is your living situation today?: I have a steady place to live Within the past 12 months, did the food you bought not last and you didn't have the money to get more?: Never true Within the past 12 months, did you worry whether your food would run out before you got money to buy more?: Never true Do you have trouble paying for medicines?: No Do you have trouble getting transportation to medical appointments?: No Do you have trouble paying your heating and electricity bill?: No Do you have trouble taking care of your child, family member or friend?: No Do you have trouble with day-to-day activities such as bathing, preparing meals, shopping, managing finances, etc.?: No Are you currently unemployed and looking for a job?: No Are you interested in more education?: No Please select the resources that you would like help with: None Currently or been in a relationship where the following occur: no concerns reported THRIVE Score: 0 AUDIT C Alcohol Use Questionnaire (AUDIT-C) 1. How often do you have a drink containing alcohol?: Never Total Score: 0 JONATHAN-7 AMB Questionnaire JONATHAN-7 Date JONATHAN - 7 assessed: 08/05/23 Feeling nervous, anxious, or on edge: 0 = Not at all Not being able to stop or control worryin = Not at all Worrying too much about different things: 0 = Not at all Trouble relaxin = Not at all Being so restless that it is hard to sit still: 0 = Not at all Becoming easily annoyed or irritable: 0 = Not at all Feeling afraid as if something awful might happen: 0 = Not at all Total JONATHAN-7 score (0-4 normal; 5-9 mild; 10-14 moderate; 15-21 severe): 0 Source: Developed by Drs. Murphy Yi, Valencia Gonzalez, Deondre Kelly and colleagues, with an educational lance from [employer]. JONATHAN-7 Assessment Billing JONATHAN-7 Assessment Tool: JONATHAN-7 Assessment 62046 Review of Systems Const All systems reviewed & are unremarkable except as noted in HPI and below Eyes Reports no additional complaints, Denies change in vision and Denies other visual disturbances Card Denies chest pain at rest, Denies chest pain with activity, Denies edema, Denies irregular heart rhythm, Denies claudication, Denies dyspnea, Denies dyspnea on exertion, Denies orthopnea, Denies paroxysmal nocturnal dyspnea and Denies slow heart rate Resp Denies cough, Denies dyspnea and Denies dyspnea on exertion GI Denies abdominal pain, Denies change in bowel habits, Denies excessive flatus, Denies nausea and Denies vomiting Denies urinary hesitancy, Denies urinary incontinence and Denies urinary urgency Physical exam (Primary Care) Vital Signs: Last Vital Signs BP 150/70 H 08/05/23 15:20 BMI result Body Mass Index 40.3 Tobacco/Smoking Status: Tobacco use Status Tobacco use date assessed 08/05/23 08/05/23 15:25 Patient Tobacco Use Status Former Tobacco user 08/05/23 15:25 Tobacco use type Cigarette 08/05/23 15:25 e-Cigarette/Vaping Use Never Used 08/05/23 15:25 PHQ-9: PHQ-9 Score PHQ-9: Total score 0 08/05/23 15:41 Depression Screening Interpretation: Negative Thrive Assessment: Date of Thrive Assessment Date Thrive assessed 08/05/23 08/05/23 15:25 Currently or been in a relationship where the following occur: no concerns reported Const Orientation/consciousness: patient oriented x3 HENMT Head: Yes normal to inspection, Yes normocephalic and Yes atraumatic Ears: external ears normal Eyes General: appearance normal, both eyes and all related structures Eyelids: Yes eyelids normal Conjunctivae: conjunctivae normal Neck Neck: Yes normal visual inspection and Yes supple Resp Effort & Inspection: normal respiratory effort Auscultation: clear to auscultation bilaterally Cardio Jugular venous distension: no JVD Rate: regular rate Rhythm: regular rhythm Heart sounds: S1 normal heart sound present and S2 normal heart sound present GI Inspection: Yes normal to inspection Palpation (GI): Soft to palpation and nontender Auscultation: normal bowel sounds Skin General skin exam: no rashes or lesions noted Neuro General: patient oriented x3 and no focal motor deficits Extrem General: Yes full ROM Psych Appearance: grossly normal Assessment and Plan Assessment & Plan (1) Physical exam: Code(s): Z00.00 - Encounter for general adult medical examination without abnormal findings Plan: Repeat in a year. (2) Morbid obesity: Code(s): E66.01 - Morbid (severe) obesity due to excess calories Plan: Start diet and exercise. BMI goal is less than 30. Orders: Orders Lipid Panel 08/05/23 Z00.00 - Encounter for general adult medical examination without abnormal findings Comprehensive [place]. Panel Fast 08/05/23 Z00.00 - Encounter for general adult medical examination without abnormal findings Complete Blood Count Auto Diff 08/05/23 D64.9 - Anemia, unspecified IRON PROFILE 08/05/23 D64.9 - Anemia, unspecified Referrals Gastroenterology Referral Z12.11 - Encounter for screening for malignant neoplasm of colon Medications: New hydrocortisone 1% (Anti-Itch (hydrocortisone)) 1 appl topical BID 30 days PRN 28.4 grams 1RF skin irritation amlodipine 10 mg PO DAILY 90 days 90 tabs 1RF I10 - Essential (primary) hypertension Discontinued amlodipine Discontinued Reason: Patient Completed Course 5 mg PO DAILY 90 days 90 tabs 1RF Coding Level of Care Code Est Pt Prev Care >65y(23093) Diagnoses Physical exam Z00.00 Morbid obesity E66.01 Additional Codes JONATHAN-7 Assessment Billing - JONATHAN-7 Assessment Tool: JONATHAN-7 Assessment 94359 ([id number]) Time Spent (min) 34
[2023-08-05 15:20] VITALS: BP 150/70; BMI 40.3
== END 2023-08-05 15:53 | disposition home or self-care (01) ==
PROVIDERS: PCP Internal Medicine; Visit Provider Internal Medicine
DX: Z00.00 Encounter for general adult medical examination without abnormal findings (principal); E66.01 Morbid (severe) obesity due to excess calories; Z68.41 Body mass index [BMI] 40.0-44.9, adult
CPT/HCPCS: 99397

== ENCOUNTER 2023-08-16 12:11 | Outpatient (REF) | payer OTHER, SELFPAY ==
[2023-08-16 12:22] LABS: MANUAL DIFF FLAG NO
[2023-08-16 12:34] LABS: Basophils Percent Auto 0.3 % (0-2); Eosinophils Absolute Auto 0.1 X10*3/uL (0.0-0.4); Hematocrit 40.5 % (42.0-52.0); Hemoglobin 13.6 g/dl (14.0-18.0); Imm Gran Abs Auto 0.02 X10*3/uL (0.00-0.03); Imm Gran Pct Auto 0.3 % (0.0-0.4); Lymphocytes Absolute Auto 1.9 X10*3/uL (1.2-4.9); Lymphocytes Percent Auto 27.7 % (20-40); Mean Corpuscular HGB Conc 33.6 g/dl (31.0-36.0); Mean Corpuscular Hemoglobin 28.5 pg (27.0-33.0); Mean Corpuscular Volume 84.7 fL (80.0-98.0); Monocytes Absolute Auto 0.7 X10*3/uL (0.1-1.2); Monocytes Percent Auto 10.1 % (2-11); Neutrophils Absolute Auto 4.1 x10*3/uL (2.0-8.3); Neutrophils Percent Auto 60.6 % (45-73); Platelet Count 285 X10*3/uL (160-400); Red Blood Count 4.78 X10*6/uL (4.60-5.80); Red Cell Distribution Width 12.7 % (11.0-16.0); White Blood Count 6.7 X10*3/uL (4.8-10.8)
[2023-08-16 12:57] LABS: Alanine Aminotransferase 26 U/L (0-40); Albumin Level 4.1 g/dL (3.5-5.0); Alkaline Phosphatase 67 U/L (39-117); Anion Gap 12 (12-20); Aspartate Amino Transferase 22 U/L (5-37); Bilirubin Total 0.4 mg/dL (0.0-1.0); Blood Urea Nitrogen 26 mg/dL (9-16); Calcium 10.2 mg/dL (8.4-10.2); Carbon Dioxide 28 mmol/L (22-29); Chloride 104 mmol/L (96-108); Cholesterol 181 mg/dL (<200); Estimated Glomerular Filt Rate > 60; Glucose Fasting 108 mg/dL (60-99); HDL Cholesterol 42 mg/dL (>40); Iron 86 mcg/dL (45-160); LDL Cholesterol Calculated 117 mg/dL (<100); Percent Iron Saturation 34 % (15-50); Potassium 4.4 mmol/L (3.3-5.1); Sodium 140 mmol/L (135-145); Total Iron Binding Capacity 256 mcg/dL (228-428); Total Protein 7.4 g/dL (6.5-8.0); Triglycerides 112 mg/dL (<150); Unsaturated Iron Binding 170 ug/dL
== END 2023-08-16 12:12 | disposition home or self-care (01) ==
LOC: HO.LAB 12:11
PROVIDERS: PCP Internal Medicine; Visit Provider Internal Medicine
DX: Z00.00 Encounter for general adult medical examination without abnormal findings (principal); D64.9 Anemia, unspecified
CPT/HCPCS: 36415; 80053; 80061; 83540; 85025

== ENCOUNTER 2023-11-02 13:54 | Outpatient (AMB) | payer OTHER, SELFPAY ==
--- NOTE | 2023-11-02 14:03 | A.OFFVIS_ITS ---
Vital Signs 11/02/23 14:13 Height 5 ft 8 in Weight 261 lb 0.437 oz BMI 39.7 BP 140/64 H Blood Pressure Location Rt brachial Position Sitting Pulse 66 Pulse Source Pulse Oximeter Pulse Oximetry (%) 95 Oxygen Delivery Method Room Air Intake Visit Reasons: Colonoscopy Screening Intake Note: Zander presents in office today for a scheduled colo s/p scrn CC; Pt has prior hx of s/p approximately 11 years ago via [facility]. Pt denies any sx or significant concerns at this time. Pt is being instructed by PCP to have recall colo q10 years Dental Technology Advisor Required: Yes Dental Technology Advisor Services: Dental Technology Advisor Present Dental Technology Advisor Name: [id number] Milind Information Interpreted: non-clinical & clinical Allergies No Known Allergies Allergy (Verified 11/02/23 14:05) HPI HPI Colonoscopy Screening: Details: 67 year old? male with past medical history of hydrocele, morbid obesity, dyslipidemia, GERD, hypertension is here today for pre colonoscopy screening.? Patient was sent to us by his PCP.? Last colonoscopy 10 years ago.? Patient denies any gastrointestinal symptoms in the past or at present.? Denies any personal or family history of gastrointestinal disease, colon polyps, or CRC.? Denies history of difficulty with sedation or anesthesia in the past.? Negative for history of sleep apnea.? Denies any history of cardiac, renal, pulmonary, or hepatic disease.?? No history of infectious? diseases like hepatitis A, B, C, HIV or tuberculosis.? Patient is not on any anticoagulation [facility] Medical History Leg edema Former smoker Obese Dyslipidemia GERD (gastroesophageal reflux disease) Essential hypertension Surgical History Sebaceous cyst History of hydrocelectomy History of colonoscopy (~2012) History of colon polyps Family History Father Cancer Mother Diabetes Social History Housing: House Are you a primary personal care worker to a significant other at home: No Do you presently have visiting nurse or other home services: Yes (DEONNAMandi [phone]) Alcohol intake: former Patient Tobacco Use Status: Former Tobacco user Tobacco use type: Cigarette e-Cigarette/Vaping Use: Never Used Second Hand Smoke Exposure: No service: No Current occupational status: retired Cognitive needs: No Hearing needs: No Vision needs: Yes Review of Systems Const Denies weight gain and Denies weight loss ENT Reports no additional complaints, Denies dysphagia and Denies odynophagia Card Reports no additional complaints Resp Reports no additional complaints GI Denies abdominal pain, Denies belching, Denies melena, Denies bloating, Denies change in bowel habits, Denies dysphagia, Denies excessive flatus, Denies dyspepsia, Denies heartburn, Denies diarrhea, Denies loose stools, Denies nausea, Denies odynophagia and Denies vomiting Reports no additional complaints Musc Reports no additional complaints Neuro Reports no additional complaints Psych Reports no additional complaints Endo Reports no additional complaints Physical Exam Vital Signs: Last Vital Signs Pulse 66 11/02/23 14:13 BP 140/64 H 11/02/23 14:13 Pulse Ox 95 11/02/23 14:13 Oxygen Delivery Method Room Air 11/02/23 14:13 BMI result Body Mass Index 39.7 Const General: healthy appearing and no acute distress Nutritional Appearance: obese Orientation/consciousness: patient oriented x3 Resp Effort & Inspection: normal respiratory effort, able to speak in complete sentences, no tracheal deviation and symmetric chest movement Auscultation: clear to auscultation bilaterally Cardio Rate: regular rate GI Inspection: Yes normal to inspection, No distended and Yes obesity Palpation (GI): Soft to palpation, not firm, nontender and No hepatosplenomegaly present Auscultation: normal bowel sounds General: Yes no CVA tenderness Back/Spine/Pelvis Back: no CVA tenderness Skin General skin exam: elasticity normal, turgor normal and dry skin Neuro General: patient oriented x3 Psych Appearance: grossly normal Mental Status: mental status grossly normal Assessment & Plan Assessment & Plan (1) Screening for colon cancer: Code(s): Z12.11 - Encounter for screening for malignant neoplasm of colon Category: Medical Plan Patient denies any GI, cardiac or respiratory symptoms.? Denies any issues with anesthesia in the past.? Denies any history of sleep apnea.? No history infectious diseases in the past or present.? Not on any anticoagulation therapy.? No family or personal history of colon cancer or polyps.? Patient denies melena, hematochezia, unintentional weight loss or ribbon like stools.? Discussed at length the pre-procedure,? prep, diet & medications as well as what to expect prior, during and after the procedure.?? Stressed the importance of good bowel prep.? Recommended the use of Vaseline or Calmoseptine OTC & baby wipes with bowel movements to promote comfort.? ?Patient verbalizes understanding and agrees to plan of care.? He was given the opportunity to ask questions and all questions answered.? We will see him after the procedure.? Disconnected from the iPad and [facility] transitions manager rn used during this entire visit with this provider (name of drafter electromechanical: Patrick) Medications: New bisacodyl (Dulcolax (bisacodyl)) take 4 tabs at noon the day before your colonoscopy 20 mg (4 x 5 mg) PO ONCE 4 tabs 0RF 1 day Z12.11 - Encounter for screening for malignant neoplasm of colon polyethylene glycol 3350 (Miralax) As directed by gastroenterology department at [facility] 238 grams PO ONCE 238 grams 0RF Z12.11 - Encounter for screening for malignant neoplasm of colon Coding Level of Care Code New Pt Level 3 (29805) Diagnoses Screening for colon cancer Z12.11 Time Spent (min) 40 Comment 30 minutes spent with patient and additional 10 minutes spent reviewing his records
[2023-11-02 14:13] VITALS: BP 140/64; PULSE 66; O2SAT 95; BMI 39.7
== END 2023-11-02 14:39 | disposition home or self-care (01) ==
PROVIDERS: PCP Internal Medicine; Referring Provider Internal Medicine; Visit Provider Nurse Practitioner Family
DX: Z01.818 Encounter for other preprocedural examination (principal); Z12.11 Encounter for screening for malignant neoplasm of colon
CPT/HCPCS: 99024

== ENCOUNTER → 2023-11-02 13:54 | Outpatient (BNVA) | payer OTHER, SELFPAY | PROVIDERS: PCP Internal Medicine; Referring Provider Internal Medicine; Visit Provider Nurse Practitioner Family | DX: Z01.818 Encounter for other preprocedural examination (principal); K21.9 Gastro-esophageal reflux disease without esophagitis; E78.5 Hyperlipidemia, unspecified; E66.01 Morbid (severe) obesity due to excess calories | CPT/HCPCS: 99212 ==

== ENCOUNTER 2023-12-13 13:24 | Outpatient (AMB) | payer OTHER, SELFPAY ==
[2023-12-13 13:30] VITALS: BP 136/68; BMI 39.2
--- NOTE | 2023-12-13 13:30 | MHC.PC.OV ---
Vital Signs 12/13/23 13:30 Height 5 ft 8 in Weight 258 lb BMI 39.2 BP 136/68 Blood Pressure Location Lt brachial Position Sitting Intake Visit Reasons: 4mth f/u Intake Note: Patient here for a 4 month follow Business Planning Director Required: No Accompanied by: Friend Allergies No Known Allergies Allergy (Verified 12/13/23 13:38) Medication List - Last Reconciled 12/13/23 by Joslyn Gardner MD amlodipine 10 mg PO DAILY 90 days atorvastatin 40 mg PO BEDTIME 90 days bisacodyl (Dulcolax (bisacodyl)) 20 mg (4 x 5 mg) PO ONCE 1 day blood pressure monitor As directed chlorthalidone 25 mg PO DAILY 90 days hydrocortisone 1% (Anti-Itch (hydrocortisone)) 1 appl topical BID PRN 30 days lisinopril 40 mg PO DAILY 90 days loratadine 10 mg PO DAILY 90 days metoprolol succinate ER 100 mg PO DAILY 90 days omeprazole 20 mg PO DAILY 90 days polyethylene glycol 3350 (Miralax) 238 grams PO ONCE Tobacco use date assessed: 08/05/23 Fall risk assessment: No Falls in past year Last assessed Fall Risk: 12/13/23 Dental Screening Dental Screen Date: 08/05/23 HPI HPI Comments History of Present Illness Details This is a 67-year-old male with hypertension, dyslipidemia and GERD that comes accompanied by a friend complaining of left knee pain that has been present for few weeks with on previous trauma. Has full active range of motion. Will order x-ray. Blood pressure stable. Last cholesterol was well controlled with statins. GERD stable with PPIs. No chest pain or shortness breath. He is obese with a BMI of 39.2 and was advised to diet and exercise to reach BMI goal less than 30. [facility] Medical History (Updated 12/13/23 @ 14:29 by Joslyn Gardner MD) Leg edema Former smoker Obese Dyslipidemia GERD (gastroesophageal reflux disease) Essential hypertension Surgical History Sebaceous cyst History of hydrocelectomy History of colonoscopy (~2012) History of colon polyps Family History Father Cancer Mother Diabetes Social History Housing: House Are you a primary child care lead teacher to a significant other at home: No Do you presently have visiting nurse or other home services: Yes ([facility] [phone]) Alcohol intake: former Patient Tobacco Use Status: Former Tobacco user Tobacco use type: Cigarette e-Cigarette/Vaping Use: Never Used Second Hand Smoke Exposure: No service: No Current occupational status: retired Cognitive needs: No Hearing needs: No Vision needs: Yes Questionnaire Thrive Questionnaire Date Thrive assessed: 08/05/23 JONATHAN-7 AMB Questionnaire JONATHAN-7 Date JONATHAN - 7 assessed: 08/05/23 Source: Developed by Drs. Murphy Yi, Valencia Gonzalez, Deondre Kelly and colleagues, with an educational lance from [employer]. Review of Systems Const All systems reviewed & are unremarkable except as noted in HPI and below Card Denies chest pain at rest, Denies chest pain with activity, Denies edema, Denies irregular heart rhythm, Denies claudication, Denies dyspnea, Denies dyspnea on exertion, Denies orthopnea, Denies paroxysmal nocturnal dyspnea and Denies slow heart rate Resp Denies cough, Denies dyspnea and Denies dyspnea on exertion GI Denies abdominal pain, Denies change in bowel habits, Denies excessive flatus, Denies nausea and Denies vomiting Denies urinary hesitancy, Denies urinary incontinence and Denies urinary urgency Musc Denies abnormal gait, Denies atrophy, Denies deformity and Denies limited range of motion Skin/Breast Denies bleeding lesions, Denies changing lesions and Denies rash Neuro Denies abnormal gait and Denies lack of coordination Physical exam (Primary Care) Vital Signs: Last Vital Signs BP 136/68 12/13/23 13:30 BMI result Body Mass Index 39.2 BMI Assessment/Plan discussion: High BMI High, discussed plan: lifestyle, weight reduction, dietary and physical activity Tobacco/Smoking Status: Tobacco use Status Tobacco use date assessed 08/05/23 12/13/23 13:34 Patient Tobacco Use Status Former Tobacco user 12/13/23 13:34 Tobacco use type Cigarette 12/13/23 13:34 e-Cigarette/Vaping Use Never Used 12/13/23 13:34 Thrive Assessment: Date of Thrive Assessment Date Thrive assessed 08/05/23 12/13/23 13:34 Resp Effort & Inspection: normal respiratory effort Auscultation: clear to auscultation bilaterally Cardio Jugular venous distension: no JVD Rate: regular rate Rhythm: regular rhythm Heart sounds: S1 normal heart sound present and S2 normal heart sound present Extrem General: Yes full ROM Assessment and Plan Assessment & Plan (1) Essential hypertension: Code(s): I10 - Essential (primary) hypertension Plan: Continue lisinopril, chlorthalidone and amlodipine. Blood pressure goal is equal or less than 130/80. (2) Dyslipidemia: Code(s): E78.5 - Hyperlipidemia, unspecified Plan: Continue statins. (3) GERD (gastroesophageal reflux disease): Code(s): K21.9 - Gastro-esophageal reflux disease without esophagitis Plan: Continue PPIs. (4) Left knee pain: Code(s): M25.562 - Pain in left knee Qualifiers: Chronicity: chronic Qualified Code(s): M25.562 - Pain in left knee; G89.29 - Other chronic pain Plan: X-ray order. Orders: Orders XR knee LT 2V Today M25.562 - Pain in left knee PT Evaluation and Treatment Today M25.562 - Pain in left knee Medications: Refilled atorvastatin 40 mg PO BEDTIME 90 tabs 1RF 90 days E78.5 - Hyperlipidemia, unspecified chlorthalidone 25 mg PO DAILY 90 tabs 1RF 90 days I10 - Essential (primary) hypertension lisinopril 40 mg PO DAILY 90 tabs 1RF 90 days I10 - Essential (primary) hypertension amlodipine 10 mg PO DAILY 90 tabs 1RF 90 days I10 - Essential (primary) hypertension Coding Level of Care Code Est Pt Level 4 (93389) Complex EM visit Add On G2211 Diagnoses Essential hypertension I10 Dyslipidemia E78.5 GERD (gastroesophageal reflux disease) K21.9 Chronic pain of left knee M25.562; G89.29 Chronicity: chronic Time Spent (min) 21
== END 2023-12-13 13:44 | disposition home or self-care (01) ==
PROVIDERS: PCP Internal Medicine; Visit Provider Internal Medicine
DX: I10 Essential (primary) hypertension (principal); E78.5 Hyperlipidemia, unspecified; K21.9 Gastro-esophageal reflux disease without esophagitis; M25.562 Pain in left knee; G89.29 Other chronic pain
CPT/HCPCS: 99214; G2211

== ENCOUNTER 2024-03-08 07:41 | Outpatient (REF) | payer OTHER, SELFPAY ==
[2024-03-08 10:37] LABS: Prostate Specific Antigen 1.51 ng/mL (<0.05-4.0)
== END 2024-03-08 07:42 | disposition home or self-care (01) ==
LOC: HO.LAB 07:41
PROVIDERS: Visit Provider Nurse Practitioner Family
DX: N40.0 Benign prostatic hyperplasia without lower urinary tract symptoms (principal); N43.3 Hydrocele, unspecified; Z12.5 Encounter for screening for malignant neoplasm of prostate
CPT/HCPCS: 36415; 81003; 84153; 99212

== ENCOUNTER 2024-03-08 13:29 | Outpatient (AMB) | payer OTHER, SELFPAY ==
--- NOTE | 2024-03-08 13:34 | A.OFFVIS_ITS ---
Intake Visit Reasons: 1y/PSA Intake Note: Patient presents today for follow up on: hydrocele and psa lab results Urology Medications: none Blood Thinner: none Shoemaking Finisher Required: Yes Shoemaking Finisher Services: Shoemaking Finisher Present Shoemaking Finisher Name: [id number] Accompanied by: Self / Same As Patient Allergies No Known Allergies Allergy (Verified 03/08/24 13:55) Medication List - Last Reconciled 03/08/24 by FEROZ Hope amlodipine 10 mg PO DAILY 90 days atorvastatin 40 mg PO BEDTIME 90 days bisacodyl (Dulcolax (bisacodyl)) 20 mg (4 x 5 mg) PO ONCE 1 day blood pressure monitor As directed chlorthalidone 25 mg PO DAILY 90 days hydrocortisone 1% (Anti-Itch (hydrocortisone)) 1 appl topical BID PRN 30 days lisinopril 40 mg PO DAILY 90 days loratadine 10 mg PO DAILY 90 days metoprolol succinate ER 100 mg PO DAILY 90 days omeprazole 20 mg PO DAILY 90 days polyethylene glycol 3350 (Miralax) 238 grams PO ONCE HPI Comments Details: Zander is a pleasant 68 year old Albanian speaking patient of Dr. Ch. He has a past medical history of former smoker, obesity, dyslipidemia, GERD, and hypertension. He presents to the office today for follow-up. In discussion with the patient today he reports to be doing and feeling well. He denies any bothersome urinary issues or concerns since his last office visit here approximately 1 year ago. Of note, patient underwent right-sided hydrocelectomy with Dr. Lowe 08/23. He denies any bothersome scrotal issues. He discusses being happy he proceeded with the surgery. When asked patient denies urinary urgency, urinary frequency, incontinence, nocturia, hematuria,erectile dysfunction, changes to urinary stream, flank pain, fever, and or chills. In office urinalysis results reviewed with the patient today. Recent PSA results reviewed with the patient today. PSAs are as follows: PSAs 06/25 1.3, 02/23 1.5 [facility] Medical History Leg edema Former smoker Obese Dyslipidemia GERD (gastroesophageal reflux disease) Essential hypertension Surgical History Sebaceous cyst History of hydrocelectomy History of colonoscopy (~2012) History of colon polyps Family History Father Cancer Mother Diabetes Social History Housing: House Are you a primary healthcare management consultant to a significant other at home: No Do you presently have visiting nurse or other home services: Yes ([facility] [phone]) Alcohol intake: former Patient Tobacco Use Status: Former Tobacco user Tobacco use type: Cigarette e-Cigarette/Vaping Use: Never Used Second Hand Smoke Exposure: No service: No Current occupational status: retired Cognitive needs: No Hearing needs: No Vision needs: Yes Review of Systems Eyes Reports no additional complaints ENT Reports no additional complaints Card Reports as per HPI Resp Reports no additional complaints GI Reports as per HPI Reports as per HPI Musc Reports no additional complaints Neuro Reports no additional complaints Psych Reports no additional complaints Endo Reports no additional complaints Nahum/Lymph Reports no additional complaints Aller/Immun Reports no additional complaints Physical Exam Const General: cooperative, healthy appearing, comfortable, no acute distress, well developed, alert and awake Nutritional Appearance: overweight Orientation/consciousness: patient oriented x3 Limitations: no limitations HEENT Head: Yes normal to inspection, Yes normocephalic and Yes atraumatic Ears: hearing grossly normal bilaterally Eyes General: appearance normal, both eyes and all related structures Neck Neck: Yes normal visual inspection and Yes trachea midline Chest Chest palpation & inspection: normal inspection of the chest Resp Effort & Inspection: normal respiratory effort and able to speak in complete sentences Cardio Rate: regular rate GI Inspection: Yes normal to inspection General: Yes no CVA tenderness Back/Spine/Pelvis Back: no CVA tenderness Skin General skin exam: no rashes or lesions noted Neuro General: patient oriented x3 Extrem General: Yes normal to inspection Psych Appearance: grossly normal and well kempt Mental Status: mental status grossly normal Speech and movement: Normal speech and movement present and Clear speech present Affect: normal affect Attitude: cooperative Thought process: Normal thought process present Thought content: Normal thought content present Insight: Fair insight present (Psych) Judgement: Fair judgement present (Psych) Results AMB Urinalysis, Automated UA Leukoctes 0 Pipe/uL Last Edit by Sukh Chand on 03/08/24 13:52 UA Nitrite Last Edit by [employer] Chand on 03/08/24 13:52 UA Urobilinogen 0.2 mg/dL Last Edit by [employer] on 03/08/24 13:52 UA Protein 0 mg/dL Last Edit by [employer] on 03/08/24 13:52 UA pH 6.0 Last Edit by [employer] on 03/08/24 13:52 UA Blood 0 Jasen/uL Last Edit by [employer] on 03/08/24 13:52 UA Specific [place] 1.020 Last Edit by [employer] on 03/08/24 13:52 UA Ketone Last Edit by [employer] on 03/08/24 13:52 UA Bilirubin 0 mg/dL Last Edit by [employer] on 03/08/24 13:52 UA Glucose 0 mg/dL Last Edit by [employer] on 03/08/24 13:52 Results Reviewed Results Reviewed: Laboratory Last Values Urine pH (Auto) 6.0 03/08/24 13:51 Specific [place] (Auto) 1.020 03/08/24 13:51 Urine Protein (Auto) 0 mg/dL 03/08/24 13:51 Glucose (UA)(Auto) 0 mg/dL 03/08/24 13:51 Urine Blood (Auto) 0 Jasen/uL 03/08/24 13:51 Urine Bilirubin (Auto) 0 mg/dL 03/08/24 13:51 Urine Urobilinogen (Auto) 0.2 mg/dL 03/08/24 13:51 Leukocyte Esterase (Auto) 0 Pipe/uL 03/08/24 13:51 Assessment & Plan Assessment & Plan (1) Hydrocele: Code(s): N43.3 - Hydrocele, unspecified Category: Medical (2) Screening for prostate cancer: Code(s): Z12.5 - Encounter for screening for malignant neoplasm of prostate Category: Medical (3) Right hydrocele: Code(s): N43.3 - Hydrocele, unspecified Category: Medical Plan In office urinalysis results reviewed with the patient today; as noted above. Recent PSA results reviewed with the patient today; as noted above. Patient currently denies any bothersome urinary issues or concerns. He reports be happy with current voiding parameters. Will obtain PSA in 1 year. Follow-up in 1 year with imaging to be completed prior; or sooner with any issues, concerns, and or questions. Orders: Orders Prostate Specific Antigen 1 Year Z12.5 - Encounter for screening for malignant neoplasm of prostate AMB Urinalysis Automated Today Z13.9 - Encounter for screening, unspecified Coding Level of Care Code Est Pt Level 3 (07155) Diagnoses Hydrocele N43.3 Screening for prostate cancer Z12.5 Right hydrocele N43.3
== END 2024-03-08 13:57 | disposition home or self-care (01) ==
LOC: HO.HUSH 13:29
PROVIDERS: PCP Internal Medicine; Visit Provider Nurse Practitioner Family
DX: N43.3 Hydrocele, unspecified (principal); Z12.5 Encounter for screening for malignant neoplasm of prostate; Z13.9 Encounter for screening, unspecified
CPT/HCPCS: 99213

== ENCOUNTER 2024-03-21 10:01 | Day surgery (SDC) | payer OTHER, SELFPAY ==
[2024-03-17 09:04] VITALS: BMI 39.2
--- NOTE | 2024-03-17 14:39 | P.CONAN_ITS ---
HPI - Anesthesia Eval Consult details Narrative: 68yo M for Colonoscopy PMFSH Active Problems Active Problems: All Active Problems Left knee pain (Acute) Sebaceous cyst (Acute) Hydrocele (Acute) Screening for colon cancer (Acute) Screening for prostate cancer (Acute) Pruritic rash (Acute) Adult general medical exam (Acute) Scrotal swelling (Acute) Class 2 obesity with body mass index (BMI) of 38.0 to 38.9 in adult (Acute) Physical exam (Acute) Screen for colon cancer (Acute) Right hydrocele (Acute) Lipoma (Acute) Morbid obesity (Acute) Leg edema (Acute) Former smoker (Acute) Obese (Acute) Dyslipidemia (Acute) GERD (gastroesophageal reflux disease) (Acute) Essential hypertension (Acute) Past Medical History Medical History Leg edema Former smoker Obese Dyslipidemia GERD (gastroesophageal reflux disease) Essential hypertension Family History Family History Father Cancer Mother Diabetes Family history of problems with anesthesia: No Surgical History Surgical History Sebaceous cyst History of hydrocelectomy History of colonoscopy (~2012) History of colon polyps History of Problems with Anesthesia: No Social History Social History Housing: House Are you a primary patient care provider to a significant other at home: No Do you presently have visiting nurse or other home services: Yes ([facility] [phone]) Alcohol intake: former Patient Tobacco Use Status: Former Tobacco user Tobacco use type: Cigarette e-Cigarette/Vaping Use: Never Used Second Hand Smoke Exposure: No service: No Current occupational status: retired Cognitive needs: No Hearing needs: No Vision needs: Yes Meds Allergies Allergy/AdvReac Type Severity Reaction Status Date / Time No Known Allergies Allergy Verified 03/08/24 13:55 Exam Height,Weight and Vital Signs: Height 5 ft 8 in Weight 117.027 kg Assessment and Plan Assessment Anesthesia Assessment: Chart Reviewed Final Anesthetic Review Family History of Problems with Anesthesia: No History of Problems with Anesthesia: No
--- NOTE | 2024-03-21 10:04 | P.CONAN_ITS ---
[facility] Active Problems Active Problems: All Active Problems Left knee pain (Acute) Sebaceous cyst (Acute) Hydrocele (Acute) Screening for colon cancer (Acute) Screening for prostate cancer (Acute) Pruritic rash (Acute) Adult general medical exam (Acute) Scrotal swelling (Acute) Class 2 obesity with body mass index (BMI) of 38.0 to 38.9 in adult (Acute) Physical exam (Acute) Screen for colon cancer (Acute) Right hydrocele (Acute) Lipoma (Acute) Morbid obesity (Acute) Leg edema (Acute) Former smoker (Acute) Obese (Acute) Dyslipidemia (Acute) GERD (gastroesophageal reflux disease) (Acute) Essential hypertension (Acute) Past Medical History Medical History Leg edema Former smoker Obese Dyslipidemia GERD (gastroesophageal reflux disease) Essential hypertension Functional capacity: independent ambulation Family History Family History Father Cancer Mother Diabetes Family history of problems with anesthesia: No Surgical History Surgical History Sebaceous cyst History of hydrocelectomy History of colonoscopy (~2012) History of colon polyps History of Problems with Anesthesia: No Social History Social History Housing: House Are you a primary home care coordinator to a significant other at home: No Do you presently have visiting nurse or other home services: Yes ([facility] [phone]) Alcohol intake: former Patient Tobacco Use Status: Former Tobacco user Tobacco use type: Cigarette e-Cigarette/Vaping Use: Never Used Second Hand Smoke Exposure: No Advance Directives: No Advance Directives Information Provided: Yes service: No Current occupational status: retired Cognitive needs: No Hearing needs: No Vision needs: Yes Meds Allergies Allergy/AdvReac Type Severity Reaction Status Date / Time No Known Allergies Allergy Verified 03/08/24 13:55 Exam Height,Weight and Vital Signs: Height 5 ft 8 in Weight 117.027 kg Airway Mallampati Class: III TM Dist: >3cm Neck ROM: Full Heart: RRR Lungs: CTA Assessment and Plan Assessment Anesthesia Assessment: Anesthesia Plan Discussed and Chart Reviewed Final Anesthetic Review Family History of Problems with Anesthesia: No History of Problems with Anesthesia: No NPO: Yes ASA Class: III Final Preanesthetic Review: Meds/Allgs Chart Reviewed, Consent Obtained/Reviewed and Anes Risks/Benef Reviewed Patient Risk: Intermediate Procedure Risk: Low Anesthetic Plan Anesthetic Plan: MAC: Disposition: Standard PACU
[2024-03-21 10:18] VITALS: BP 128/56; PULSE 71; RESP 18; TEMP 37; O2SAT 96
--- NOTE | 2024-03-21 10:30 | MHC.SHP ---
Pre-Procedural Eval Section A - 24 Hr Update-Section A only Date of Service: 03/21/24 Section B - Complete if H&P > 30 days Chief Complaint: Encounter for screening for malignant neoplasm of Details of Present Illness: Dyslipidemia Essential hypertension Former smoker GERD (gastroesophageal reflux disease) Leg edema Obese Surgical History History of colon polyps History of colonoscopy History of hydrocelectomy Allergies: Allergies Allergy/AdvReac Type Severity Reaction Status Date / Time No Known Allergies Allergy Verified 03/08/24 13:55 Review of Systems Review of Systems Comment: 10 point ROS negative Exam Surgical H&P Exam: Normal: HEENT, Normal: Heart, Normal: Lungs, Normal: Extremities, Normal: Abdomen, Normal: Skin and Normal: Neurological Plan Diagnosis/Plan: Unchanged I have reviewed the history and physical and performed a pertinent physical examination on my patient. No changes have occurred unless specified. Time Spent With Patient Time: Total time managing care of this patient today ____ minutes.
[2024-03-21] MEDS: Lactated Ringers 1,000 ML 100 ML IVCONT (10:39)
--- NOTE | 2024-03-21 12:56 | HO.OPN-COLON ---
Colonoscopy Operative Note Operative Note Date of Service: 03/21/24 Narrative: Procedure: Colonoscopy Indication: Screening Endoscopist: Marichuy Nelson MD Anesthesia Provider: Dr Emilie Westfall Anesthesia type: MAC Instrument: Olympus [id number]-H190L Consent: Indication, risks vs benefits, and alternatives were discussed with the patient who gave written informed consent to proceed. An mechanic field service was utilized to assist with the consent. EKG, pulse, pulse oximetry and blood pressure were monitored throughout the procedure. Please see anesthesia flowsheet. Procedure: The patient was brought to the procedure room and placed in the left lateral decubitus position. IV medications were administered by the anesthesia provider in attendance. A digital rectal exam was performed which was normal. A distal attachment cap was affixed to the tip of the colonoscope which was then inserted through the anus and advanced through the colon to the cecum at 75 cm,and terminal ileum. Appendiceal orifice and ileocecal valve were identified. Mucosa was carefully examined under high definition white light as the instrument was slowly withdrawn in a retrograde panoramic fashion. Retroflexion was performed in ascending colon and rectum. The procedure was not difficult. There were no immediate obvious complications. The quality of the prep was BBPS: 2+3+2 = adequate Withdrawal time 7 minutes. Limitations: No limitations. Findings: Mucosa: Prominent serpiginous vascular pattern noted in rectum and sigmoid colon. Otherwise normal to cecum and terminal ileum. Protruding lesions: Medium internal hemorrhoids without stigmata of recent bleeding. Excavated lesions: Moderate diverticulosis of whole colon L>R. Impression: 1. Normal colon and terminal ileum mucosa 2. Diverticulosis 3. Internal hemorrhoids Recommendations: - Repeat colonoscopy in 10 years if pt in good health.
[2024-03-21 12:59] VITALS: BP 112/56; PULSE 69; RESP 16; TEMP 36.4; O2SAT 98
[2024-03-21 13:14] VITALS: BP 125/61; PULSE 63; RESP 16; TEMP 36.1; O2SAT 96
--- NOTE | 2024-03-21 14:34 | HO.POSTANES ---
Post Anesthesia Evaluation Post Anesthesia Evaluation Date of Service: 03/21/24 Vital Signs: Vital Signs Temp Pulse Resp BP Pulse Ox O2 Del Method 03/21/24 13:14 97 F 63 16 125/61 96 Room Air 03/21/24 12:59 97.6 F 69 16 112/56 L 98 Room Air 03/21/24 10:18 98.6 F 71 18 128/56 L 96 Room Air Anesthesia: Monitored Mental Status: Awake Pain Control: Satisfactory Nausea/Vomiting: None Hydration: Adequate Anesthesia-Related Issues: No Anes. Related Issues
== END 2024-03-21 13:45 | disposition home or self-care (01) ==
PROVIDERS: PCP Internal Medicine; Visit Provider Internal Medicine
PROC: 0DJD8ZZ Inspection of Lower Intestinal Tract, Via Natural or Artificial Opening Endoscopic (ICD-10-PCS; CPT 45378; principal; 2024-03-21 11:30)
DX: Z12.11 Encounter for screening for malignant neoplasm of colon (principal); K57.30 Diverticulosis of large intestine without perforation or abscess without bleeding; K64.8 Other hemorrhoids; E78.5 Hyperlipidemia, unspecified; I10 Essential (primary) hypertension; K21.9 Gastro-esophageal reflux disease without esophagitis; Z87.891 Personal history of nicotine dependence
CPT/HCPCS: G0121; J2003; J2704

== ENCOUNTER → 2024-03-21 10:01 | Outpatient (BNV) | payer OTHER, SELFPAY | PROVIDERS: PCP Internal Medicine; Visit Provider Internal Medicine | DX: Z12.11 Encounter for screening for malignant neoplasm of colon (principal); K57.90 Diverticulosis of intestine, part unspecified, without perforation or abscess without bleeding; K64.8 Other hemorrhoids | CPT/HCPCS: G0121 ==

== ENCOUNTER 2024-04-05 14:11 | Outpatient (AMB) | payer OTHER, SELFPAY ==
[2024-04-05 14:21] VITALS: BP 148/68; PULSE 66; O2SAT 96; BMI 39.9
--- NOTE | 2024-04-05 14:21 | MHC.OFFVIS ---
Vital Signs 04/05/24 14:21 Height 5 ft 8 in Weight 262 lb 5.601 oz BMI 39.9 BP 148/68 H Blood Pressure Location Lt brachial Position Sitting Pulse 66 Pulse Source Pulse Oximeter Pulse Oximetry (%) 96 Oxygen Delivery Method Room Air Intake Visit Reasons: S/P [place]; Dr. Iqbal Intake Note: Zander presents in office today for a scheduled s/p FUV CC; Any changes to sx or concerns since last visit? Pt denies any signficant changes or new concerns. ? Recent hx of relevant surgeries? [facility] [place] w/ TH Exhibition Carver Required: Yes Exhibition Carver Services: Exhibition Carver Present Exhibition Carver Name: [id number] Quiana Information Interpreted: non-clinical & clinical Accompanied by: Self / Same As Patient Allergies No Known Allergies Allergy (Verified 04/05/24 14:35) HPI HPI S/P [facility]; Dr. Iqbal: Details: LAST VISIT Screening for colon cancer Plan Patient denies any GI, cardiac or respiratory symptoms.? Denies any issues with anesthesia in the past.? Denies any history of sleep apnea.? No history infectious diseases in the past or present.? Not on any anticoagulation therapy.? No family or personal history of colon cancer or polyps.? Patient denies melena, hematochezia, unintentional weight loss or ribbon like stools.? Discussed at length the pre-procedure,? prep, diet & medications as well as what to expect prior, during and after the procedure.?? Stressed the importance of good bowel prep.? Recommended the use of Vaseline or Calmoseptine OTC & baby wipes with bowel movements to promote comfort.? ?Patient verbalizes understanding and agrees to plan of care.? He was given the opportunity to ask questions and all questions answered.? We will see him after the procedure.? ? Disconnected from the iPad and Demandware supervisor assembly stock used during this entire visit with this provider (name of gusset stitcher: Patrick) Medications New bisacodyl (Dulcolax (bisacodyl)) take 4 tabs at noon the day before your colonoscopy 20 mg (4 x 5 mg) PO ONCE 4 tabs 0RF 1 day Z12.11 polyethylene glycol 3350 (Miralax) As directed by gastroenterology department at [facility] 238 grams PO ONCE 238 grams 0RF Z12.11 COLONOSCOPY: Findings: Mucosa: Prominent serpiginous vascular pattern noted in rectum and sigmoid colon. Otherwise normal to cecum and terminal ileum. Protruding lesions: Medium internal hemorrhoids without stigmata of recent bleeding. Excavated lesions: Moderate diverticulosis of whole colon L>R. Impression: 1. Normal colon and terminal ileum mucosa 2. Diverticulosis 3. Internal hemorrhoids Recommendations: - Repeat colonoscopy in 10 years if pt in good health. TODAY'S VISIT: Patient is here today for follow-up and to discuss colonoscopy results. Patient denies any ill effects from the prep, anesthesia or procedure itself. Patient reports to be feeling well. Moving his bowels without any issues. No polyps found, lower it diverticulosis throughout the whole colon L>R. Colonoscopy results discussed with patient. Patient denies any family history of CRC. Patient denies any melena, hematochezia, unintentional weight loss or ribbon like stools. Denies any dyspepsia, dysphagia or odynophagia [facility] Medical History (Updated 04/05/24 @ 14:49 by Janelle Vargas, [facility]) Diverticulosis Leg edema Former smoker Obese Dyslipidemia GERD (gastroesophageal reflux disease) Essential hypertension Surgical History Sebaceous cyst History of hydrocelectomy History of colonoscopy (~2012) History of colon polyps Family History Father Cancer Mother Diabetes Social History Housing: House Are you a primary long term care pharmacist to a significant other at home: No Do you presently have visiting nurse or other home services: Yes (Roseann [phone]) Alcohol intake: former Patient Tobacco Use Status: Former Tobacco user Tobacco use type: Cigarette e-Cigarette/Vaping Use: Never Used Second Hand Smoke Exposure: No service: No Current occupational status: retired Cognitive needs: No Hearing needs: No Vision needs: Yes Review of Systems Const Denies weight gain and Denies weight loss ENT Reports no additional complaints, Denies dysphagia and Denies odynophagia Card Reports no additional complaints Resp Reports no additional complaints GI Denies abdominal pain, Denies belching, Denies melena, Denies bloating, Denies change in bowel habits, Denies dysphagia, Denies excessive flatus, Denies dyspepsia, Denies heartburn, Denies diarrhea, Denies loose stools, Denies nausea, Denies odynophagia and Denies vomiting Reports no additional complaints Musc Reports no additional complaints Neuro Reports no additional complaints Psych Reports no additional complaints Endo Reports no additional complaints Physical Exam Vital Signs: Last Vital Signs Pulse 66 04/05/24 14:21 BP 148/68 H 04/05/24 14:21 Pulse Ox 96 04/05/24 14:21 Oxygen Delivery Method Room Air 04/05/24 14:21 BMI result Body Mass Index 39.9 Const General: healthy appearing and no acute distress Nutritional Appearance: obese Orientation/consciousness: patient oriented x3 Resp Effort & Inspection: normal respiratory effort, able to speak in complete sentences, no tracheal deviation and symmetric chest movement Auscultation: clear to auscultation bilaterally Cardio Rate: regular rate GI Inspection: Yes normal to inspection, No distended and Yes obesity Palpation (GI): Soft to palpation, not firm, nontender and No hepatosplenomegaly present Auscultation: normal bowel sounds General: Yes no CVA tenderness Back/Spine/Pelvis Back: no CVA tenderness Skin General skin exam: elasticity normal, turgor normal and dry skin Neuro General: patient oriented x3 Psych Appearance: grossly normal Mental Status: mental status grossly normal Assessment & Plan Assessment & Plan (1) Diverticulosis: Code(s): K57.90 - Diverticulosis of intestine, part unspecified, without perforation or abscess without bleeding Category: Medical (2) Status post colonoscopy: Code(s): Z98.890 - Other specified postprocedural states Plan Moderate diverticulosis seen in the entire colon. Patient was encouraged to increase fiber in his diet. Patient will get Benefiber with probiotics. Increase fluid intake and activity to promote better bowel motility. No family history of CRC colonoscopy in 10 years is help allows. Patient will call our office if he will concerning symptoms. He is agreeable to this plan and verbalizes understanding of instructions. He was given the opportunity to ask questions and all questions answered. Thank you for allowing me to participate in his care Coding Level of Care Code Est Pt Level 3 (75231) Diagnoses Diverticulosis K57.90 Status post colonoscopy Z98.890 Time Spent (min) 25 Comment 15 minutes spent with patient and additional 10 minutes spent reviewing his records
== END 2024-04-05 14:52 | disposition home or self-care (01) ==
PROVIDERS: PCP Internal Medicine; Visit Provider Nurse Practitioner Family
DX: K57.90 Diverticulosis of intestine, part unspecified, without perforation or abscess without bleeding (principal); Z98.890 Other specified postprocedural states
CPT/HCPCS: 99213

== ENCOUNTER → 2024-04-05 14:11 | Outpatient (BNVA) | payer OTHER, SELFPAY | PROVIDERS: PCP Internal Medicine; Visit Provider Nurse Practitioner Family | DX: K57.90 Diverticulosis of intestine, part unspecified, without perforation or abscess without bleeding (principal); Z98.890 Other specified postprocedural states | CPT/HCPCS: 99212 ==

== ENCOUNTER 2024-08-14 13:02 | Outpatient (AMB) | payer OTHER, SELFPAY ==
--- NOTE | 2024-08-14 13:07 | A.OFFPC_ITS ---
Vital Signs 08/14/24 13:13 Height 5 ft 8 in Weight 258 lb BMI 39.2 BP 126/70 Blood Pressure Location Lt brachial Position Sitting Intake Visit Reasons: Annual Exam Intake Note: Patient here for an annual physical exam Roll Form Operator Required: No Accompanied by: Friend Allergies No Known Allergies Allergy (Verified 08/14/24 13:22) Medication List - Last Reconciled 08/14/24 by Joslyn Gardner MD amlodipine 10 mg PO DAILY 90 days atorvastatin 40 mg PO BEDTIME 90 days blood pressure monitor As directed chlorthalidone 25 mg PO DAILY 90 days hydrocortisone 1% (Anti-Itch (hydrocortisone)) 1 appl topical BID PRN 30 days lisinopril 40 mg PO DAILY 90 days loratadine 10 mg PO DAILY 90 days metoprolol succinate ER 100 mg PO DAILY 90 days omeprazole 20 mg PO DAILY 90 days Tobacco use date assessed: 08/14/24 Fall risk assessment: No Falls in past year Last assessed Fall Risk: 08/14/24 Dental Screening Dental Screen Date: 08/14/24 Did you have a dental visit in the last 12 months?: No Did you have a dental problem in the last 6 months where you did not have access to dental care?: No Was dental information given to patient?: Patient has dentist HPI HPI Comments History of Present Illness Details The patient is a 68-year-old male presenting for an annual physical examination and review of current medications. He has a history of well- controlled essential hypertension, taking several antihypertensive medications with a recent blood pressure reading of 126/70 mmHg. His hyperlipidemia is managed with atorvastatin, and he has stable gastroesophageal reflux disease managed with omeprazole. He is experiencing ongoing allergic reaction symptoms, although he is using topical treatments, these have not been effective, leading to the addition of an oral antihistamine. He had right hydrocele surgery in 2022, and his colonoscopy last year was uneventful. Concerns regarding the strength and functionality of his right knee may require the use of a cane, as discussed. The patient's family history i ncludes cancer on his father's side and diabetes affecting his mother. He has quit smoking and drinking, and notable psychosocial issues were not observed. - Completed colonoscopy in the previous year. - Pneumococcal vaccination up to date. - Scheduled repeat laboratory tests from the previous year for follow-up. [facility] Medical History (Updated 08/14/24 @ 15:09 by Joslyn Gardner MD) Morbid obesity Diverticulosis Leg edema Former smoker Obese Dyslipidemia GERD (gastroesophageal reflux disease) Essential hypertension Surgical History Sebaceous cyst History of hydrocelectomy History of colonoscopy (~2012) History of colon polyps Family History Father Cancer Mother Diabetes Social History Housing: House Are you a primary career development counselor to a significant other at home: No Do you presently have visiting nurse or other home services: Yes (Roseann [phone]) Alcohol intake: former Patient Tobacco Use Status: Former Tobacco user Tobacco use type: Cigarette e-Cigarette/Vaping Use: Never Used Second Hand Smoke Exposure: No service: No Current occupational status: retired Cognitive needs: No Hearing needs: No Vision needs: Yes Questionnaire PHQ-9 Over the last 2 weeks, how often have you been bothered by any of the following problems? 1. Little interest or pleasure in doing things: not at all 2. Feeling down, depressed, or hopeless: not at all 3. Trouble falling or staying asleep, or sleeping too much: not at all 4. Feeling tired or having little energy: not at all 5. Poor appetite or overeating: not at all 6. Feeling bad about yourself - or that you are a failure or have let yourself or your family down: not at all 7. Trouble concentrating on things, such as reading the newspaper or watching television: not at all 8. Moving or speaking so slowly that other people could have noticed. Or the opposite - being so fidgety or restless that you have been moving around a lot more than usual: not at all 9. Thoughts that you would be better off or of hurting yourself in some way: not at all Total score: 0 Depression Screening Interpretation: Negative Depression Screening Done: Yes 36492 - PHQ-9 Billing: Yes Source: Developed by Drs. Murphy Yi, Valenica Gonzalez, Deondre Kelly and colleagues, with an educational lance from [employer]. Thrive Questionnaire Date Thrive assessed: 08/14/24 I am a: Patient What is your living situation today?: I have a steady place to live Within the past 12 months, did the food you bought not last and you didn't have the money to get more?: Never true Within the past 12 months, did you worry whether your food would run out before you got money to buy more?: Never true Do you have trouble paying for medicines?: No Do you have trouble getting transportation to medical appointments?: No Do you have trouble paying your heating and electricity bill?: No Do you have trouble taking care of your child, family member or friend?: No Do you have trouble with day-to-day activities such as bathing, preparing meals, shopping, managing finances, etc.?: No Are you currently unemployed and looking for a job?: No Are you interested in more education?: No Please select the resources that you would like help with: None Currently or been in a relationship where the following occur: No concerns reported THRIVE Score: 0 AUDIT C Alcohol Use Questionnaire (AUDIT-C) 1. How often do you have a drink containing alcohol?: Never Total Score: 0 Score Reviewed/Action Taken: No JONATHAN-7 AMB Questionnaire JONATHAN-7 Date JONATHAN - 7 assessed: 08/14/24 Feeling nervous, anxious, or on edge: 0 = Not at all Not being able to stop or control worryin = Not at all Worrying too much about different things: 0 = Not at all Trouble relaxin = Not at all Being so restless that it is hard to sit still: 0 = Not at all Becoming easily annoyed or irritable: 0 = Not at all Feeling afraid as if something awful might happen: 0 = Not at all Total JONATHAN-7 score (0-4 normal; 5-9 mild; 10-14 moderate; 15-21 severe): 0 Source: Developed by Drs. Murphy Yi, Valencia Gonzalez, Deondre Kelly and colleagues, with an educational lance from [employer]. JONATHAN-7 Assessment Billing JONATHAN-7 Assessment Tool: JONATHAN-7 Assessment 97877 Review of Systems Const All systems reviewed & are unremarkable except as noted in HPI and below Card Denies chest pain at rest, Denies chest pain with activity, Denies edema, Denies irregular heart rhythm, Denies claudication, Denies dyspnea, Denies dyspnea on exertion, Denies orthopnea, Denies paroxysmal nocturnal dyspnea and Denies slow heart rate Resp Denies cough, Denies dyspnea and Denies dyspnea on exertion GI Denies abdominal pain, Denies change in bowel habits, Denies excessive flatus, Denies nausea and Denies vomiting Denies urinary hesitancy, Denies urinary incontinence and Denies urinary urgency Musc Denies abnormal gait, Denies atrophy, Denies deformity and Denies limited range of motion Skin/Breast Denies bleeding lesions, Denies changing lesions and Denies rash Neuro Denies abnormal gait and Denies lack of coordination Physical exam (Primary Care) Vital Signs: Last Vital Signs BP 126/70 08/14/24 13:13 BMI result Body Mass Index 39.2 Tobacco/Smoking Status: Tobacco use Status Tobacco use date assessed 08/14/24 08/14/24 13:16 Patient Tobacco Use Status Former Tobacco user 08/14/24 13:16 Tobacco use type Cigarette 08/14/24 13:16 e-Cigarette/Vaping Use Never Used 08/14/24 13:16 PHQ-9: PHQ-9 Score PHQ-9: Total score 0 08/14/24 13:24 Depression Screening Interpretation: Negative Thrive Assessment: Date of Thrive Assessment Date Thrive assessed 08/14/24 08/14/24 13:16 Currently or been in a relationship where the following occur: No concerns reported [facility] Head: Yes normal to inspection, Yes normocephalic and Yes atraumatic Ears: external ears normal Eyes General: appearance normal, both eyes and all related structures Eyelids: Yes eyelids normal Conjunctivae: conjunctivae normal Neck Neck: Yes normal visual inspection and Yes supple Resp Effort & Inspection: normal respiratory effort Auscultation: clear to auscultation bilaterally Cardio Jugular venous distension: no JVD Rate: regular rate Rhythm: regular rhythm Heart sounds: S1 normal heart sound present and S2 normal heart sound present GI Inspection: Yes normal to inspection Palpation (GI): Soft to palpation and nontender Auscultation: normal bowel sounds Skin General skin exam: no rashes or lesions noted Neuro General: no focal motor deficits Extrem General: Yes full ROM Psych Appearance: grossly normal Coding Level of Care Code Est Pt Level 3 (68417) Est Pt Prev Care >65y(34502) Diagnoses Adult general medical exam Z00.00 Osteoarthritis of right knee M17.11 Additional Codes JONATHAN-7 Assessment Billing - JONATHAN-7 Assessment Tool: JONATHAN-7 Assessment 20259 ([id number]) PHQ-9 - 88681 - PHQ-9 Billing: Yes ([id number]) Time Spent (min) 33 Assessment & Plan Assessment & Plan (1) Adult general medical exam: Code(s): Z00.00 - Encounter for general adult medical examination without abnormal findings Category: Medical (2) Osteoarthritis of right knee: Code(s): M17.11 - Unilateral primary osteoarthritis, right knee Category: Medical Plan The patient's essential hypertension and hyperlipidemia are controlled under the current medication regimen. Additional oral antihistamine is prescribed to manage persistent allergic symptoms, complementing loratadine. The hydrocele surgery is stable, and knee support via a cane is advised for diminished right knee functionality. Updated laboratory tests will be scheduled. His overall health is supported by lifestyle habits, including abstaining from smoking and alcohol, and discussions on family health history continue to guide preventive care strategies. Patient was informed and verbally consented to the use of an ambient scribe for clinic note documentation during this visit. I explained the importance of continuous monitoring of blood pressure and lipid levels, emphasizing adherence to antihypertensive and statin therapy. I addressed the concerns regarding the allergic reactions, prescribing an oral antihistamine for more effective control. The potential need for knee support with a cane was evaluated and advised, given the right knee's condition. We documented his hydrocele surgery as resolved and scheduled follow-up labs. Our discussion included the impact of lifestyle improvements and his positive adjustment to alcohol and smoking cessation. Preventive health strategies were reinforced, along with a plan to manage familial risks such as diabetes. Orders: Orders Lipid Panel Today Z00.00 - Encounter for general adult medical examination without abnormal findings Comprehensive [place]. Panel Fast Today Z00.00 - Encounter for general adult medical examination without abnormal findings Medications: New cane As directed 1 ea 0RF M17.11 - Unilateral primary osteoarthritis, right knee Refilled loratadine 10 mg PO DAILY 90 tabs 1RF 90 days Patient Instructions: - Continue taking all prescribed medications as directed. - Use the newly prescribed oral antihistamine for additional allergy relief. - Utilize a cane for right-knee support as necessary. - Return for repeat laboratory tests as scheduled. - Maintain healthy lifestyle habits, including a balanced diet and exercise. - Monitor for any changes in symptoms and contact if issues arise. - Seek medical attention promptly if experiencing any new or worsening symptoms.
[2024-08-14 13:13] VITALS: BP 126/70; BMI 39.2
--- OUTSIDE RECORDS SUMMARY | 2024-08-14 14:57 | XMS_ITS | Clinical Summary ---
Author Organization [facility] Address [address] [place] [address] Care Team Providers Care Network Pricing Consultant Name Role Phone Karyna Montaño Primary Care Provider Social History Tobacco Use Types Packs/Day Years Used Date Smoking Tobacco: Never Smokeless Tobacco: Never Alcohol Use Standard Drinks/Week Comments No 0 (1 standard drink = 0.6 oz pur e alcohol) Sex and Gender Information Value Date Recorded Sex Assigned at Not on file Legal Sex Male 4:56 AM EST Gender Identity Not on file Sexual Orientation Not on file Obstetrics History Plan of Treatment Health Maintenance Due Date Last Done Comments DTaP,Tdap,and Td Vaccines (1 - Tdap) 1972 Pneumococcal Vaccine: 50+ Ye ars (1 of 1 - PCV) 12/30/2003 Zoster Vaccines (1 of 2) 12/30/2003 COVID-19 Vaccine ( - 2023-2 5 season) 2024 Influenza Vaccine (Season Ended) 2025 RSV Immunization Adult Patie nts (1 - 1-dose 75+ series) 2028 HIB Vaccines Aged Out No longer eligi ble based on patient's age to complete this topic HPV Vaccines Aged Out No longer eligi ble based on patient's age to complete this topic Hepatitis A Vaccines Aged Out No long er eligible based on patient's age to complete this topic Hepatitis B Vaccines Aged Out No long er eligible based on patient's age to complete this topic IPV Vaccines Aged Out No longer eligi ble based on patient's age to complete this topic MMR Vaccines Aged Out No longer eligi ble based on patient's age to complete this topic Meningococcal ACWY Vaccine Aged Out N o longer eligible based on patient's age to complete this topic Meningococcal B Vaccine Aged Out No l onger eligible based on patient's age to complete this topic RSV Immunization Patients Un miky 20 months Aged Out No longer eligible b ased on patient's age to complete this topic Varicella Vaccines Aged Out No longer eligible based on patient's age to complete this topic Care Teams Network Pricing Consultant Relationship Specialty Start Date End Date Karyna Montaño PA PCP - General Internal Medicine 12/01/18
== END 2024-08-14 13:36 | disposition home or self-care (01) ==
LOC: HO.HMCH 13:02
PROVIDERS: PCP Internal Medicine; Visit Provider Internal Medicine
DX: Z00.00 Encounter for general adult medical examination without abnormal findings (principal); M17.11 Unilateral primary osteoarthritis, right knee

== ENCOUNTER → 2024-08-14 13:02 | Outpatient (BNVA) | payer OTHER, SELFPAY | PROVIDERS: PCP Internal Medicine; Visit Provider Internal Medicine | DX: Z00.00 Encounter for general adult medical examination without abnormal findings (principal); I10 Essential (primary) hypertension; M17.11 Unilateral primary osteoarthritis, right knee; Z79.899 Other long term (current) drug therapy | CPT/HCPCS: 96127; 99212; 99397 ==

== ENCOUNTER 2024-12-28 11:03 | Outpatient (REF) | payer OTHER, SELFPAY ==
--- OUTSIDE RECORDS SUMMARY | 2024-12-28 12:25 | XMS_ITS | Clinical Summary ---
Author Organization [facility] Address [address] [place] [address] Care Team Providers Care Records Section Supervisor Name Role Phone Karyna Montaño Primary Care [...] Vaccine ( - 2023-2 5 season) 2024 Depression Screening 05/03/2024 Influenza Vaccine (#1) 2025 RSV Immunization Adult Patie nts (1 [...] age to complete this topic Care Teams Records Section Supervisor Relationship Specialty Start Date End Date Karyna Montaño PA PCP - General Internal Medicine 12/01/18
[2024-12-28 12:40] LABS: Alanine Aminotransferase 31 U/L (0-40); Albumin Level 4.0 g/dL (3.5-5.0); Alkaline Phosphatase 80 U/L (39-117); Anion Gap 11 (12-20); Aspartate Amino Transferase 30 U/L (5-37); Blood Urea Nitrogen 23 mg/dL (9-16); Calcium 9.1 mg/dL (8.4-10.2); Carbon Dioxide 28 mmol/L (22-29); Chloride 103 mmol/L (96-108); Cholesterol 144 mg/dL (<200); Estimated Glomerular Filt Rate > 60; HDL Cholesterol 34 mg/dL (>40); Potassium 4.1 mmol/L (3.3-5.1); Sodium 138 mmol/L (135-145); Total Protein 6.9 g/dL (6.5-8.0); Triglycerides 122 mg/dL (<150)
== END 2024-12-28 11:04 | disposition home or self-care (01) ==
LOC: HO.LAB 11:03
PROVIDERS: PCP Internal Medicine; Visit Provider Internal Medicine
DX: Z00.00 Encounter for general adult medical examination without abnormal findings (principal); Z13.6 Encounter for screening for cardiovascular disorders
CPT/HCPCS: 36415; 80053; 80061

== ENCOUNTER 2025-02-26 12:16 | Outpatient (REF) | payer OTHER, SELFPAY ==
[2025-02-26 15:02] LABS: Prostate Specific Antigen 1.88 ng/mL (<0.05-4.0)
--- OUTSIDE RECORDS SUMMARY | 2025-02-26 15:39 | XMS_ITS | Clinical Summary ---
Author Organization [facility] Address [address] [place] [address] Care Team Providers Care Community Health Advocate Name Role Phone Karyna Montaño Primary Care [...] 12/30/2003 Zoster Vaccines (1 of 2) 12/30/2003 Depression Screening 05/03/2024 COVID-19 Vaccine (1 - 2023-2 5 season) 2025 Influenza Vaccine (#1) 2025 RSV Immunization Adult [...] age to complete this topic Care Teams Community Health Advocate Relationship Specialty Start Date End Date Karyna Montaño PA PCP - General Internal Medicine 12/01/18
== END 2025-02-26 12:17 | disposition home or self-care (01) ==
LOC: HO.LAB 12:16
PROVIDERS: PCP Internal Medicine; Visit Provider Nurse Practitioner Family
DX: Z12.5 Encounter for screening for malignant neoplasm of prostate (principal)
CPT/HCPCS: 36415; 84153

== ENCOUNTER 2025-03-07 13:19 | Outpatient (AMB) | payer OTHER, SELFPAY ==
--- NOTE | 2025-03-07 13:26 | A.OFFVIS_ITS ---
Intake Visit Reasons: 1y/PSA/PVR Intake Note: Patient is present for 1Y/PSA/PVR Urology Medication:NONE Antibiotic Allergy:NONE Blood Thinner:NONE TODAY'S PVR:29ML'S Color Paste Mixing Supervisor Required: Yes Color Paste Mixing Supervisor Services: Color Paste Mixing Supervisor Present Color Paste Mixing Supervisor Name: Natan Stark Allergies No Known Allergies Allergy (Verified 03/07/25 14:13) Medication List - Last Reconciled 03/07/25 by MAMADOU Hope amlodipine 10 mg PO DAILY 90 days atorvastatin 40 mg PO BEDTIME 90 days blood pressure monitor As directed cane As directed chlorthalidone 25 mg PO DAILY 90 days hydrocortisone 1% (Anti-Itch (hydrocortisone)) 1 appl topical BID PRN 30 days lisinopril 40 mg PO DAILY 90 days loratadine 10 mg PO DAILY 90 days metoprolol succinate ER 100 mg PO DAILY 90 days omeprazole 20 mg PO DAILY 90 days HPI Comments Details: Zander is a pleasant 69 year old Faroese speaking patient of Dr. Ch. He has a past medical history of former smoker, obesity, dyslipidemia, GERD, and hypertension. He presents to the office today for follow-up. In discussion with the patient today he reports to be doing and feeling well. He denies any bothersome urinary issues or concerns since his last office visit here approximately 1 year ago. Of note, patient underwent right-sided hydrocelectomy with Dr. Lowe 08/23. He denies any bothersome scrotal issues. When asked patient denies urinary urgency, urinary frequency, incontinence, nocturia, hematuria,erectile dysfunction, changes to urinary stream, flank pain, fever, and or chills. In office urinalysis results reviewed with the patient today. Recent PSA results reviewed with the patient today. PSAs are as follows: PSAs 06/25 1.3, 02/23 1.5, 02/24 1.9 All questions were answered. He otherwise offers no other issues or concerns at this time. [facility] Medical History Morbid obesity Diverticulosis Leg edema Former smoker Obese Dyslipidemia GERD (gastroesophageal reflux disease) Essential hypertension Surgical History Sebaceous cyst History of hydrocelectomy History of colonoscopy (~2012) History of colon polyps Family History Father Cancer Mother Diabetes Social History Housing: House Are you a primary life care planner to a significant other at home: No Do you presently have visiting nurse or other home services: Yes ([facility] [phone]) Alcohol intake: former Patient Tobacco Use Status: Former Tobacco user Tobacco use type: Cigarette e-Cigarette/Vaping Use: Never Used Second Hand Smoke Exposure: No service: No Current occupational status: retired Cognitive needs: No Hearing needs: No Vision needs: Yes Review of Systems Eyes Reports no additional complaints ENT Reports no additional complaints Card Reports as per HPI Resp Reports no additional complaints GI Reports as per HPI Reports as per HPI Musc Reports no additional complaints Neuro Reports no additional complaints Psych Reports no additional complaints Endo Reports no additional complaints Nahum/Lymph Reports no additional complaints Aller/Immun Reports no additional complaints Physical Exam Const General: cooperative, healthy appearing, comfortable, no acute distress, well developed, alert and awake Nutritional Appearance: overweight Orientation/consciousness: patient oriented x3 Limitations: language barrier HEENT Head: Yes normal to inspection, Yes normocephalic and Yes atraumatic Ears: hearing grossly normal bilaterally Eyes General: appearance normal, both eyes and all related structures Neck Neck: Yes normal visual inspection and Yes trachea midline Chest Chest palpation & inspection: normal inspection of the chest Resp Effort & Inspection: normal respiratory effort and able to speak in complete sentences Cardio Rate: regular rate GI Inspection: Yes normal to inspection General: Yes no CVA tenderness Back/Spine/Pelvis Back: no CVA tenderness Skin General skin exam: no rashes or lesions noted Neuro General: patient oriented x3 Extrem General: Yes normal to inspection Psych Appearance: grossly normal and well kempt Mental Status: mental status grossly normal Speech and movement: Normal speech and movement present and Clear speech present Affect: normal affect Attitude: cooperative Thought process: Normal thought process present Thought content: Normal thought content present Insight: Fair insight present (Psych) Judgement: Fair judgement present (Psych) Office Procedures Post Void Residual Post Residual Void Post Void Residual (PVR): 29 [id number] Void Residual by ultrasound Results AMB Urinalysis, Automated UA Leukoctes 0 Pipe/uL Last Edit by PURNIMA Duran on 03/07/25 13:51 UA Nitrite Negative Last Edit by Dianne Britton [facility] on 03/07/25 13:51 UA Urobilinogen 0.2 mg/dL Last Edit by Dianne Britton [facility] on 03/07/25 13:5 1 UA Protein 0 mg/dL Last Edit by Dianne Britton [facility] on 03/07/25 13:51 UA pH 6.0 Last Edit by Dianne Britton [facility] on 03/07/25 13:51 UA Blood 0 Jasen/uL Last Edit by Dianne Britton [facility] on 03/07/25 13:51 UA Specific [place] 1.015 Last Edit by Dianne Britton [facility] on 03/07/25 13: 51 UA Ketone Negative Last Edit by Dianne Britton [facility] on 03/07/25 13:51 UA Bilirubin 0 mg/dL Last Edit by Dianne Britton [facility] on 03/07/25 13:51 UA Glucose 0 mg/dL Last Edit by Dianne Britton [facility] on 03/07/25 13:51 Results Reviewed Results Reviewed: Laboratory Last Values Urine pH (Auto) 6.0 03/07/25 13:50 Specific [place] (Auto) 1.015 03/07/25 13:50 Urine Protein (Auto) 0 mg/dL 03/07/25 13:50 Glucose (UA)(Auto) 0 mg/dL 03/07/25 13:50 Urine Ketones (Auto) Negative 03/07/25 13:50 Urine Blood (Auto) 0 Jasen/uL 03/07/25 13:50 Urine Nitrite (Auto) Negative 03/07/25 13:50 Urine Bilirubin (Auto) 0 mg/dL 03/07/25 13:50 Urine Urobilinogen (Auto) 0.2 mg/dL 03/07/25 13:50 Leukocyte Esterase (Auto) 0 Pipe/uL 03/07/25 13:50 Assessment & Plan Assessment & Plan (1) Screening for prostate cancer: Code(s): Z12.5 - Encounter for screening for malignant neoplasm of prostate Category: Medical (2) Hydrocele: Code(s): N43.3 - Hydrocele, unspecified Category: Medical Plan In office urinalysis results with the patient today; as noted above. PVR 29 mL. Most recent PSA results reviewed with the patient today; as noted above. He currently denies any bothersome urinary issues or concerns. He reports be happy with current voiding parameters. Will continue with surveillance monitoring. All questions were answered. Will obtain PSA in 1 year Follow-up in 1 year with PSA and PVR; or sooner with any issues, concerns, and or questions. Orders: Orders AMB Urinalysis Automated Today Z13.9 - Encounter for screening, unspecified Prostate Specific Antigen 1 Year Z12.5 - Encounter for screening for malignant neoplasm of prostate Patient Instructions: The patient had an opportunity to ask questions regarding the treatment plan. All questions were answered. Physical exam, labs, and imaging were discussed and reviewed in detail. As well as risks, benefits, and discussion of treatment ch oices. No major barriers to understanding were identified. The patient expressed understanding and agreement with the above treatment plan. The patient was made aware they should contact our office by phone for worsening of their current condition, the appearance of new symptoms, or with any questions or concerns. Compliance is encouraged with any medications and follow up testing that is ordered. It is a privilege to be allowed the opportunity to participate in? your urological care.? Again, if you have any questions or concerns If you have any questions or concerns please do not hesitate to contact me. The office is [phone]. This note is constructed using voice recognition software. While every effort has been made to ensure accuracy envelope fold operator errors may have been included. Yours sincerely, MAMADOU Hope Coding Level of Care Code Est Pt Level 3 (92129) Complex EM visit Add On G2211 Diagnoses Screening for prostate cancer Z12.5 Hydrocele N43.3 CPT Codes Post Residual Void - PVR CPT Code: 61729-[id number] Void Residual by ultrasound ([id number])
== END 2025-03-07 14:44 | disposition home or self-care (01) ==
LOC: HO.HUSH 13:20
PROVIDERS: PCP Internal Medicine; Visit Provider Nurse Practitioner Family
DX: Z12.5 Encounter for screening for malignant neoplasm of prostate (principal); N43.3 Hydrocele, unspecified; Z13.9 Encounter for screening, unspecified
CPT/HCPCS: 99213; G2211

== ENCOUNTER → 2025-03-07 13:19 | Outpatient (BNVA) | payer OTHER, SELFPAY | PROVIDERS: PCP Internal Medicine; Visit Provider Nurse Practitioner Family | DX: N43.3 Hydrocele, unspecified (principal) | CPT/HCPCS: 51798; 81003; 99212 ==